=== PATIENT | male | born 1945 | race Caucasian/White ===

== ENCOUNTER 2019-11-23 11:05 | Inpatient (IN) | payer MEDICARE, OTHER, SELFPAY ==
[2019-11-23] VITALS (11 sets, daily range): BP systolic 97–129; BP diastolic 62–88; PULSE 68–100; RESP 14–20; TEMP 35.9–36.8; O2SAT 94–100; BMI 35.1
--- NOTE | 2019-11-23 11:38 | W.ED.SOB ---
HPI - SOB/Dyspnea General: Chief Complaint: Shortness of Breath/Dyspnea Stated Complaint: CHEST TIGHTNESS X 1 WEEK Time Seen by Provider: 11/23/19 11:21 History of Present Illness: HPI Narrative: 73 yo male comes in complaining 5 to 6 days of intermittent shortness of breath. He states 3 to 4 days ago he had a single episode of chest discomfort in the middle of the night. He is not had any fever sweats or chills no productive cough he is not had any previous coronary artery disease he denies nausea vomiting or diarrhea with this. He did have a little bit of streaking stool bloody stools but it was a single episode is not had any since he had related to his aspirin use. He denies any swelling in his legs he does not have any significant chest pain at this time. He not previously had episodes like this. Associated symptoms: Deny abdominal pain, chest pain, fever(s), nausea, orthopnea or vomiting Review of Systems Const: Denies: fever, chills, body aches, change in appetite, fatigue or malaise ENMT: Denies: throat pain, ear pain, nasal discharge or nasal congestion Card: Reports: swelling of feet/ankles (Slightly improved) and other (chest pressure); Denies: chest pain, edema, shortness of breath on exertion or shortness of breath when lying down Resp: Reports: shortness of breath and non-productive cough; Denies: productive cough GI: Denies: abdominal pain, nausea, vomiting, vomiting blood, coffee grounds in vomit, diarrhea, constipation, bloating, blood in stool or black tarry stool : Denies: flank pain, painful urination, urinary frequency or urinary urgency Skin/Breast: Denies: rash or itching PFS ED PFSH: Social History (Updated 11/23/19 @ 14:15 by Nicol Castaneda MD) Smoking and tobacco status: former smoker Alcohol intake: never Substance/Drug Use: never Physical Exam Const: COMMON NORMALS: no apparent distress GENERAL APPEARANCE: cooperative and comfortable ORIENTATION/CONSCIOUSNESS: Yes awake, Yes oriented to person, Yes oriented to place and Yes oriented to time HENMT: COMMON NORMALS: normocephalic, head/scalp atraumatic, hearing grossly normal bilaterally, external ears normal, EAC's normal, TM's normal bilaterally, nasal mucous membranes and turbinates normal, moist oral mucous membranes and oropharynx normal HEAD & SCALP: normocephalic and atraumatic NOSE: nasal mucous membranes and turbinates normal EXTERNAL EAR: Yes external ears normal EXTERNAL AUDITORY CANAL: EAC's normal TYMPANIC MEMBRANE: TM's normal bilaterally Eye: COMMON NORMALS: PERRL, EOMs intact bilaterally, conjunctivae normal and no scleral icterus CONJUNCTIVA: Yes conjunctivae normal PUPIL: Yes PERRL Neck/C-Spine: COMMON NORMALS: full ROM, no lymphadenopathy, supple and no JVD Lymph: LYMPHATIC: no lymphadenopathy noted and no lymphedema noted Resp: COMMON NORMALS: normal respiratory effort, no retractions, no use of accessory muscles and clear to auscultation bilaterally AUSCULTATION: clear to auscultation bilaterally Cardio: COMMON NORMALS: no JVD, regular rate, regular rhythm and no murmurs RATE: regular rate RHYTHM: regular rhythm GI: COMMON NORMALS: soft to palpation and no hepatosplenomegaly AUSCULTATION: Yes normoactive bowel sounds PALPATION: Yes soft, No tender, No guarding and Yes no hepatosplenomegaly Extremity: COMMON NORMALS: normal to inspection, normal capillary refill, no clubbing, cyanosis or edema, no calf tenderness and no pedal edema Neuro: SENSORIUM/ORIENTATION: Yes oriented to person, Yes oriented to place and Yes oriented to time Skin: COMMON NORMALS: no rashes or lesions noted GENERAL SKIN EXAM: no rashes or lesions noted Course Vital Signs: Vital signs: Vital Signs Temperature 97.8 F 11/23/19 15:22 Pulse Rate 79 11/23/19 16:15 Respiratory Rate 18 11/23/19 15:22 Blood Pressure 114/76 11/23/19 15:22 Pulse Oximetry 95 11/23/19 16:15 MDM - SOB/Dyspnea MDM Narrative: Medical decision making narrative: Patient is very concerning symptoms. He essentially has angina sounds as if it is unstable he got significantly better while at rest with the topical nitro ready to go ahead and admit him for full cardiac work-up discussed the findings with him and he is agreeable. Lab Data: Labs: Lab Results 11/23/19 11/23/19 11/23/19 Range/Units 12:00 12:00 12:00 WBC 9.5 (4.0-10.0) 10^3/ uL RBC 5.62 H (4.1-5.3) 10^6/u L Hgb 15.6 (11.7-16.6) g/dL Hct 49.7 (42.0-52.0) % MCV 88.4 (80-94) fL MCH 27.8 L (28.0-34.0) pg MCHC 31.4 (30.0-36.0) g/dL RDW 12.9 (12.1-15.1) % Plt Count 313 (130-400) 10^3/c mm MPV 10.6 H (7.4-10.4) fL Neut % (Auto) 65.1 % Lymph % (Auto) 23.9 % [place] % (Auto) 7.9 % Eos % (Auto) 1.1 % Baso % (Auto) 0.7 % Neut # (Auto) 6.2 (1.8-7.7) 10^3/u L Lymph # (Auto) 2.3 (0.8-4.8) 10^3/u L [place] # (Auto) 0.8 (0.2-0.9) 10^3/u L Eos # (Auto) 0.1 (0.0-0.8) 10^3/u L Baso # (Auto) 0.1 (0.0-0.1) 10^3/u L Nucleated RBC % (a uto) 0 % Nucleated RBCs # 0.0 /100WBC Sodium 140 (136-145) mmol/L Potassium 4.1 (3.5-5.1) mmol/L Chloride 104 (98-107) mmol/L Carbon Dioxide 23 (22-29) mmol/L Anion Gap 17.1 (5-19) BUN 17 (8-23) mg/dL Creatinine 1.0 (0.7-1.2) mg/dL Glucose 117 H (65-115) mg/dL Estimat Average Gl ucose Hemoglobin A1c (4.0-6.0) % Calculated Osmolal ity 287 (285-295) mOsm/k g Calcium 9.6 (8.5-10.5) mg/dL Total Bilirubin 0.5 (0.15-1.2) mg/dL AST 24 (0-40) U/L ALT 23 (0-41) U/L Alkaline Phosphata se 94 (40-130) IU/L Troponin T Baselin e 323 H* (0-15) ng/mL NT-Pro-B Natriuret Pep 468 H (0-125) pg/mL Total Protein 6.8 (6.6-8.7) g/dL Albumin 4.0 (3.5-5.2) g/dL Globulin 2.8 (1.3-4.6) g/dL Triglycerides (0-150) mg/dL Cholesterol (0-200) mg/dL LDL Cholesterol, C alc (50-129) mg/dL HDL Cholesterol (60-100) mg/dL LDL/HDL Ratio (0.00-3.22) RATI O Cholesterol/HDL Ra karan (1.0-5.00) mg/dL TSH (0.27-4.20) uIU/ mL 11/23/19 11/23/19 Range/Units 12:00 12:00 WBC (4.0-10.0) 10^3/ uL RBC (4.1-5.3) 10^6/u L Hgb (11.7-16.6) g/dL Hct (42.0-52.0) % MCV (80-94) fL MCH (28.0-34.0) pg MCHC (30.0-36.0) g/dL RDW (12.1-15.1) % Plt Count (130-400) 10^3/c mm MPV (7.4-10.4) fL Neut % (Auto) % Lymph % (Auto) % [place] % (Auto) % Eos % (Auto) % Baso % (Auto) % Neut # (Auto) (1.8-7.7) 10^3/u L Lymph # (Auto) (0.8-4.8) 10^3/u L [place] # (Auto) (0.2-0.9) 10^3/u L Eos # (Auto) (0.0-0.8) 10^3/u L Baso # (Auto) (0.0-0.1) 10^3/u L Nucleated RBC % (a uto) % Nucleated RBCs # /100WBC Sodium (136-145) mmol/L Potassium (3.5-5.1) mmol/L Chloride (98-107) mmol/L Carbon Dioxide (22-29) mmol/L Anion Gap (5-19) BUN (8-23) mg/dL Creatinine (0.7-1.2) mg/dL Glucose (65-115) mg/dL Estimat Average Gl ucose 111 Hemoglobin A1c 5.5 (4.0-6.0) % Calculated Osmolal ity (285-295) mOsm/k g Calcium (8.5-10.5) mg/dL Total Bilirubin (0.15-1.2) mg/dL AST (0-40) U/L ALT (0-41) U/L Alkaline Phosphata se (40-130) IU/L Troponin T Baselin e (0-15) ng/mL NT-Pro-B Natriuret Pep (0-125) pg/mL Total Protein (6.6-8.7) g/dL Albumin (3.5-5.2) g/dL Globulin (1.3-4.6) g/dL Triglycerides 134 (0-150) mg/dL Cholesterol 166 (0-200) mg/dL LDL Cholesterol, C alc 101 (50-129) mg/dL HDL Cholesterol 38 L (60-100) mg/dL LDL/HDL Ratio 2.66 (0.00-3.22) RATI O Cholesterol/HDL Ra karan 4.37 (1.0-5.00) mg/dL TSH 1.86 (0.27-4.20) uIU/ mL Discharge Plan Discharge Patient Disposition: Admitted As Inpatient Admit Provider: [place] Discharge Date/Time: 11/23/19 14:34 Coding Level of Care Code ED Milieu Technician for Chg Fwd Exam Comprehensive
--- NOTE | 2019-11-23 11:58 | XR_ITS ---
WS: [id number] CHEST XRAY TECHNIQUE: Portable chest. CLINICAL INFORMATION: dyspnea/cough COMPARISON: January 05, 2014 FINDINGS: Heart: Normal cardiac silhouette. Lungs: Moderate chronic emphysematous changes. No acute pulmonary infiltrates. No focal pneumonia. No pleural fluid. Bones: Left rotator cuff anchors. XR/XR chest 1V portable [id number] IMPRESSION: No acute pulmonary infiltrates. No acute chest findings.
[2019-11-23 12:20] LABS: Basophils # 0.1 10^3/uL (0.0-0.1); Basophils % 0.7 %; Eosinophils # 0.1 10^3/uL (0.0-0.8); Eosinophils % 1.1 %; Hematocrit 49.7 % (42.0-52.0); Hemoglobin 15.6 g/dL (11.7-16.6); Lymphocytes # 2.3 10^3/uL (0.8-4.8); Lymphocytes % 23.9 %; Mean Corpuscular HGB Conc 31.4 g/dL (30.0-36.0); Mean Corpuscular Hemoglobin 27.8 pg (28.0-34.0); Mean Corpuscular Volume 88.4 fL (80-94); Mean Platelet Volume 10.6 fL (7.4-10.4); Monocytes # 0.8 10^3/uL (0.2-0.9); Monocytes % 7.9 %; Neutrophils # 6.2 10^3/uL (1.8-7.7); Neutrophils % 65.1 %; Nucleated Red Blood Cells % 0 %; Platelet Count 313 10^3/cmm (130-400); Red Blood Count 5.62 10^6/uL (4.1-5.3); Red Cell Distribution Width 12.9 % (12.1-15.1); White Blood Count 9.5 10^3/uL (4.0-10.0)
[2019-11-23 12:39] LABS: Troponin(5th) Baseline 323 ng/mL (0-15)
[2019-11-23 12:42] LABS: Alanine Aminotransferase 23 U/L (0-41); Alkaline Phosphatase 94 IU/L (40-130); Anion Gap 17.1 (5-19); Aspartate Amino Transferase 24 U/L (0-40); Blood Urea Nitrogen 17 mg/dL (8-23); Calcium 9.6 mg/dL (8.5-10.5); Carbon Dioxide 23 mmol/L (22-29); Chloride 104 mmol/L (98-107); Globulin 2.8 g/dL (1.3-4.6); Glucose 117 mg/dL (65-115); NT Pro B Type Natriuretic Pept 468 pg/mL (0-125); Osmolality Calculated 287 mOsm/kg (285-295); Potassium 4.1 mmol/L (3.5-5.1); Sodium 140 mmol/L (136-145); Total Bilirubin 0.5 mg/dL (0.15-1.2); Total Protein 6.8 g/dL (6.6-8.7)
[2019-11-23] MEDS: nitroglycerin 1 gm/inch oint Pkt 0.5 INCH TOPICAL (12:55)
[2019-11-23] MEDS: enoxaparin 120 mg/0.8 mL Syringe 110 MG SUBCUT ×2 (13:10→23:42)
--- NOTE | 2019-11-23 13:15 | ECG_ITS ---
Measurements Intervals [place] Rate: 68 P: 27 [place]: 151 QRS: -39 QRSD: 102 T: 62 QT: 404 QTc: 431 SINUS RHYTHM INDETERMINATE AXIS LOW QRS VOLTAGE IN PRECORDIAL LEADS [QRS DEFLECTION < 1.0 mV IN CHEST LEADS] INFERIOR MYOCARDIAL INFARCTION , PROBABLY OLD [40+ ms Q WAVE AND/OR ST/T AB ABNORMALITY IN II/aVF] No previous ECG available for comparison Electronically Signed On 11-24-2019 6:46:48 CDT by Robbie Rodriguez M.D. [email or web address]
--- NOTE | 2019-11-23 14:04 | PC.NURSE ---
Attempted to call to give report. Unable to give report at this time, because nurse is not on Med-Surg yet. Med-Surg Nurse will call ER when they are able to take report. Charge Nurse notified.
--- NOTE | 2019-11-23 14:08 | PM.HP ---
Providers/Chief Complaint Admitting Physician: Nicol Castaneda MD Primary Care Provider: Bryan Saez DO Chief Complaint: NSTEMI History of Present Illness Abelino Mcqueen is a 73 year old male with PMH HTN, h/o smoking who presents today with chief complaint of chest pain that started 3 days ago. Patient states he was in his usual state of health until about a week ago when he started to notice intermittent shortness of breath on exertion. Initially he experienced this only when he was trying to cycle around his yard at home. 3 days ago he woke up at night with substernal chest pain that was radiating in between both shoulders. He sat up in bed for about 1 to 2 hours and the pain went away. He also felt short of breath at this time as a sensation of not being able to get enough air in . He has never had similar chest pain in the past. He continues to have intermittent chest pain over the next 2 days, however this was less in intensity than his nighttime pain. He [email or web address], he had some substernal heaviness and he started to gillespie and puff which is unusual for him. Sitting down and resting for a few minutes make the sensation go away. He visited his primary care doctor today for the above symptoms and was sent to the ER for further evaluation. He denies any current chest pain at this present time. He has also noticed a dry cough over this past 1 week. He has no history of fever. No history of expectoration. No history of increasing leg swelling. Of note he says he has chronic lower extremity edema for the past 4 years for which his primary care doctor had him on hydrochlorothiazide. He has a history of hypertension, which he states is well controlled. No past history of diabetes, early history of CAD. He does have a history of chronic smoking but quit few years ago. No complaints of fever. No history of recent travel. No sick contacts. Upon presentation to the ER his blood pressure at this present time is 118/64. EKG showed Q waves. Baseline troponin returned at greater than 3 23. BNP is at 468. He has no other known past cardiac history. No past echocardiogram or stress test on file. Review of Systems General: Reports: 10 or more systems reviewed and unremarkable except in HPI and below Const: Denies: fever, chills or body aches Eyes: Denies: change in vision, blurry vision or photophobia ENMT: Denies: throat pain, enlarged tonsils, painful swallowing, hoarseness or nasal congestion Card: Reports: chest pain, swelling of feet/ankles and shortness of breath on exertion; Denies: palpitations, irregular heart rhythm, edema, lightheadedness, pre-syncope or shortness of breath when lying down Resp: Reports: shortness of breath and non-productive cough; Denies: productive cough, wheezing, stridor, pain on inspiration, change in phlegm color, coughing up blood or chest congestion GI: Denies: abdominal pain, nausea, vomiting, vomiting blood, coffee grounds in vomit, difficulty swallowing, heartburn/indigestion, diarrhea, constipation, cramping, change in stool character, blood in stool or black tarry stool : Denies: flank pain, painful urination, urinary frequency, urinary urgency, urinary hesitancy or blood in urine Musc: Denies: neck pain, back pain, extremity pain, joint swelling, joint warmth or deformity Neuro: Denies: headache, numbness in extremities, weakness in extremities, changes in sensation, difficulty walking, frequent falls, dizziness, vertigo, behavioral changes, slurred speech or seizure-like activity Psych: Denies: anxiety, depression, suicidal ideation or homicidal ideation Endo: Denies: excessive urination, excessive thirst, tired all the time, cold intolerance or hot flashes [place]/Lymph: Denies: easy bruising or easy bleeding Medications/Allergies Home Medications Medication Instructions Recorded Confirmed Last Taken Type Vitamin D3 1 tab PO DAILY 11/23/19 11/23/19 Unknown History aspirin-caffeine [Hina Back and 2 tab PO BEDTIME PRN 11/23/19 11/23/19 11/21/19 History Body] hydrochlorothiazide 25 mg PO DAILY 11/23/19 11/23/19 11/23/19 History magnesium oxide 400 mg PO DAILY 11/23/19 11/23/19 Unknown History meloxicam 15 mg PO DAILY 11/23/19 11/23/19 11/23/19 History oxycodone-acetaminophen 1 tab PO BID PRN 11/23/19 11/23/19 Unknown History potassium gluconate 595 mg PO DAILY 11/23/19 11/23/19 Unknown History Allergies Allergy/AdvReac Type Severity Reaction Status Date / Time No Known Allergies Allergy Verified 11/23/19 10:14 PFSH Acute PFSH: Social History (Updated 11/23/19 @ 14:15 by Nicol Castaneda MD) Smoking and tobacco status: former smoker Alcohol intake: never Substance/Drug Use: never Vitals/I&O/Wt Last Vital Signs Temp 97.8 F 11/23/19 11:19 Pulse 71 11/23/19 13:59 Resp 16 11/23/19 13:59 BP 116/78 11/23/19 11:49 Pulse Ox 100 11/23/19 13:57 Weight last 48 hrs Weight 114.305 kg Physical Exam Narrative: EXAM NARRATIVE: GEN: Awake, alert and oriented, no acute distress CVS: S1S2 N, no murmurs, rubs or gallops RS: CTA B/L Abd: Soft, nt/nd , bs+ 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 Data : 11/23/19 12:00 11/23/19 12:00 Other Labs: troponin-323 baseline CXR: My impression: clear lungs A&P Additional A&P Information Admit to CSU level care # Chest pain with EKG changes and elevated troponin raising concern for ACS Symptoms started 3 days ago Thus far, baseline troponin elevated at 323, awaiting 2 hr and 6 hr troponin levels for trend serial EKGs pending No current c/o chest pain but endorses intermittent SOB, which may be angina equivalent Check lipid panel, hba1c and TSH in addition to other labs already drawn Start ASA 325 x 1 followed by 81mg po qd Start Atorvastatin 40mg po qd Further decision regarding testing to be based on troponin trend, patient symptoms and EKG changes Attestations Medical Necessity Statement*: anticipate >2midnight admission Coding Level of Care Code Acute It Systems Administrator for Chg Malvin
[2019-11-23 14:45] LABS: Chol HDL Ratio 4.37 mg/dL (1.0-5.00); Cholesterol 166 mg/dL (0-200); HDL Cholesterol 38 mg/dL (60-100); LDL Cholesterol Calculated 101 mg/dL (50-129); LDL HDL Ratio 2.66 RATIO (0.00-3.22); Thyroid Stimulating Hormone 1.86 uIU/mL (0.27-4.20); Triglycerides 134 mg/dL (0-150)
[2019-11-23] MEDS: aspirin 325 mg Tablet PO (15:08)
[2019-11-23] MEDS: sodium chloride 0.9% 1,000 ML 100 ML IV (15:08)
[2019-11-23] MEDS: atorvastatin 40 mg Tablet PO (15:08)
[2019-11-23 15:25] LABS: Estmated Average Glucose 111; Hemoglobin A1C 5.5 % (4.0-6.0)
[2019-11-23 16:50] LABS: Troponin 5 2HR 349.6 ng/mL (0-15); Troponin 5 2HR Delta 26.6 ABS# (0-10)
--- NOTE | 2019-11-23 17:15 | ECG_ITS ---
Measurements Intervals [place] Rate: 79 P: 48 [place]: 130 QRS: -51 QRSD: 104 T: 60 QT: 417 QTc: 479 SINUS RHYTHM INDETERMINATE AXIS LOW QRS VOLTAGE IN PRECORDIAL LEADS [QRS DEFLECTION < 1.0 mV IN CHEST LEADS] INCOMPLETE RIGHT BUNDLE BRANCH BLOCK [90+ ms QRS DURATION, TERMINAL R IN V1/V2, 40+ ms S IN I/aVL/V4/V5/V6] LEFT ANTERIOR FASCICULAR BLOCK [QRS AXIS <= -45, QR IN I, RS IN II] POSSIBLE ANTERIOR MYOCARDIAL INFARCTION [30 ms Q WAVE IN V3/V4, OR R < 0.2 mV IN V4], PROBABLY OLD INFERIOR MYOCARDIAL INFARCTION [40+ ms Q WAVE AND/OR ST/T ABNORMALITY IN II/aVF], PROBABLY OLD No previous ECG available for comparison Electronically Signed On 11-24-2019 6:47:09 CDT by Robbie Rodriguez M.D. [id number]
[2019-11-23] MEDS: nitroglycerin 1 gm/inch oint Pkt 1 INCH TOPICAL ×2 (17:30→23:43)
[2019-11-23 19:45] LABS: Troponin 5 6HR 344.9 ng/mL (0-15); Troponin 5 6HR Delta 21.9 ng/L (0-12)
[2019-11-23] MEDS: ALPRAZolam 0.25 mg Tablet PO (20:05)
[2019-11-24] VITALS (8 sets, daily range): BP systolic 97–148; BP diastolic 64–94; PULSE 73–85; RESP 16–20; TEMP 36.3–36.9; O2SAT 95–99
[2019-11-24 05:33] LABS: Basophils # 0.1 10^3/uL (0.0-0.1); Basophils % 0.8 %; Eosinophils # 0.2 10^3/uL (0.0-0.8); Eosinophils % 2.1 %; Hemoglobin 13.8 g/dL (11.7-16.6); Lymphocytes # 3.3 10^3/uL (0.8-4.8); Lymphocytes % 32.4 %; Mean Corpuscular HGB Conc 31.4 g/dL (30.0-36.0); Mean Corpuscular Volume 89.4 fL (80-94); Mean Platelet Volume 11.1 fL (7.4-10.4); Monocytes # 0.9 10^3/uL (0.2-0.9); Monocytes % 8.4 %; Neutrophils # 5.5 10^3/uL (1.8-7.7); Nucleated Red Blood Cells % 0 %; Platelet Count 275 10^3/cmm (130-400); Red Blood Count 4.92 10^6/uL (4.1-5.3); Red Cell Distribution Width 13.1 % (12.1-15.1); White Blood Count 10.1 10^3/uL (4.0-10.0)
[2019-11-24] MEDS: nitroglycerin 1 gm/inch oint Pkt 1 INCH TOPICAL ×3 (05:50→19:26)
[2019-11-24 05:57] LABS: Alanine Aminotransferase 20 U/L (0-41); Albumin Level 3.5 g/dL (3.5-5.2); Alkaline Phosphatase 76 IU/L (40-130); Anion Gap 15.8 (5-19); Aspartate Amino Transferase 21 U/L (0-40); Blood Urea Nitrogen 17 mg/dL (8-23); Calcium 9.2 mg/dL (8.5-10.5); Carbon Dioxide 24 mmol/L (22-29); Chloride 105 mmol/L (98-107); Globulin 2.7 g/dL (1.3-4.6); Glucose 111 mg/dL (65-115); Osmolality Calculated 289 mOsm/kg (285-295); Potassium 3.8 mmol/L (3.5-5.1); Sodium 141 mmol/L (136-145); Total Bilirubin 0.4 mg/dL (0.15-1.2); Total Protein 6.2 g/dL (6.6-8.7)
[2019-11-24] MEDS: aspirin 81 mg EC Tablet PO (08:44)
[2019-11-24] MEDS: acetaminophen 325 mg Tablet 650 MG PO (08:58)
--- NOTE | 2019-11-24 08:59 | ECG_ITS ---
NAME OF STUDY: LEXISCAN SESTAMIBI STRESS TEST INDICATION: Angina, PROCEDURE: At the baseline, the EKG revealed normal sinus rhythm with a poor R wave progression. Possible old anterior wall and inferior wall myocardial infarction. Low voltage complexes in the precordial leads. The baseline blood pressure was 104/62 mm Hg with a heart rate of 67 beats/min. Lexiscan was infused over a period of 20 seconds. A total of 0.4 milligrams of Lexiscan was infused. The stress phase was continued for a total of 5 minutes. Heart rate at the end of the stress phase was 79 with a blood pressure 109/82. The EKG at the peak infusion revealed no significant changes. Sestamibi was injected 20 seconds after the Lexiscan infusion. Blood pressure at the end of the recovery phase was 101/65 with a heart rate of 81 per minute. CONCLUSION: 1. No significant EKG changes with the LexiScan infusion 2. No LexiScan induced chest pain or cardiac arrhythmia 3. Normal blood pressure and heart rate response 4. Sestamibi/sestamibi perfusion scan pending; see separate report. Electronically Signed On 11-25-2019 13:19:16 CDT by Rafael Pacheco M.D. [id number]
--- NOTE | 2019-11-24 11:49 | PC.CHAP ---
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 [] Patient/Family/Request visit [] Outpatient visit [] Follow-up visit [] Physician referral [] Code/Alert [x] Routine visit [] Staff referral [] Actively dying [] Patient sleeping [] Family support [] [] Out of room [] Palliative care [] [] Receiving care in room [] Pre-surgical visit [] Trauma [] Long length of stay [] ICU visit [] Other: Relational/Emotional Strength [x] Patient feels connected with others/family/visitors/staff [] Distress [] Loneliness/isolation [] Abandonment Spirituality of Patient [x] Person of Brianna [x] Attends Latter Day of their [place] [x] Believes in Prayer [x] Reads Bible or Jew materials [] There are Spiritual issues to be addressed Service Station Console Operator Interventions [x] Prayer [x] Active listening [x] Non-anxious presence [x] Spiritual/emotional support [] Crisis/trauma care [] Spiritual counseling [] Bereavement support [] Provided bereavement packet [] Provided Bible/devotional materials [] Provided toy/stuffed animal, coloring book to patient or family member [] Provided Communion [] Anointing/[place] [] Salvation [] Completed spiritual assessment [] Other: Impact on Illness or Injury [] Angry [] Fearful [] Anxious [] Often cries [] Exhaustion [] Unable to work [] Unable to attend orthodoxy [] Unable to walk/stand [] Unable to read [] Unable to drive [] Unable to eat/drink [] Unable to sleep [] Unable to be with family [] Patient intubated [x] Other: Summary Patient is an active and current poultry process worker, from which a great Theological discussion was patricia. Time spent with patient 1-hour
--- NOTE | 2019-11-24 12:00 | P.PN_ITS ---
Subjective Subjective: Interval history: Feels well overall, no new complaints. No c/o dyspnea, however reports doesn't always feel right in the chest and the sensation appears to be improving with nitropaste. Troponins with 2 and 6 hr delta of 26 and 21. 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
[2019-11-24] MEDS: enoxaparin 120 mg/0.8 mL Syringe 110 MG SUBCUT ×2 (12:11→20:12)
[2019-11-24] MEDS: hydroCHLOROthiazide 25 mg Tablet PO (13:22)
[2019-11-24] MEDS: morphine 4 mg/mL SDV 1 mL 2 MG IVP (20:12)
[2019-11-24] MEDS: atorvastatin 40 mg Tablet PO (20:14)
[2019-11-24] MEDS: ALPRAZolam 0.25 mg Tablet PO (20:14)
[2019-11-25] VITALS (7 sets, daily range): BP systolic 97–142; BP diastolic 53–85; PULSE 62–79; RESP 17–18; TEMP 36.6–36.7; O2SAT 94–99
[2019-11-25 05:28] LABS: Basophils # 0.1 10^3/uL (0.0-0.1); Basophils % 0.8 %; Eosinophils # 0.2 10^3/uL (0.0-0.8); Eosinophils % 2.3 %; Hematocrit 45.7 % (42.0-52.0); Hemoglobin 14.5 g/dL (11.7-16.6); Lymphocytes # 2.5 10^3/uL (0.8-4.8); Lymphocytes % 24.8 %; Mean Corpuscular HGB Conc 31.7 g/dL (30.0-36.0); Mean Corpuscular Hemoglobin 27.7 pg (28.0-34.0); Mean Corpuscular Volume 87.4 fL (80-94); Mean Platelet Volume 10.5 fL (7.4-10.4); Monocytes # 0.9 10^3/uL (0.2-0.9); Monocytes % 8.6 %; Neutrophils # 6.2 10^3/uL (1.8-7.7); Neutrophils % 62.3 %; Nucleated Red Blood Cells % 0 %; Platelet Count 297 10^3/cmm (130-400); Red Blood Count 5.23 10^6/uL (4.1-5.3); Red Cell Distribution Width 12.8 % (12.1-15.1)
--- NOTE | 2019-11-25 07:20 | PC.NURSE ---
Patient taken to [facility] [place] test
[2019-11-25] MEDS: regadenoson 0.4 Mg/5 ml Syringe IVP (07:45)
[2019-11-25] MEDS: hydroCHLOROthiazide 25 mg Tablet PO (09:44)
[2019-11-25] MEDS: pantoprazole DR 40 mg Tablet PO (09:44)
[2019-11-25] MEDS: aspirin 81 mg EC Tablet PO (09:44)
--- NOTE | 2019-11-25 12:19 | NMCV_ITS ---
NM sohail perf SPECT r/s* [id number] Abelino Mcqueen Age: 73 Gender: M : 1945 Exam Date: 11/25/2019 07:08 Ordering Phys: Nicol Castaneda MD Technologist: CAROL Rivero Exam Location: [facility] Indications: NSTEMI STRESS TEST Please see separate stress test report in [facility] for full findings IMAGE PROTOCOL Rest/Stress 1 Lexiscan Day Radiopharmaceutical Dose (mCi) Administration Site Administered by Rest: Tc-99m 10.9 IV CAROL Hassan Sestamibi Stress:Tc-99m 32.9 IV CAROL Hassan Sestamibi Rest: 25-Nov-2019 60 Discovery 630 Stress: 25-Nov-2019 30 Discovery 630 0.4mg Lexiscan. Supine position only as patient was unable to lay prone. SPECT RESULTS Technical Quality: Good Raw Data Analysis: Normal Image Corrections: No attenuation or motion correction applied Summed Stress Score: 18 Summed Rest Score: 23 Summed Difference Score: 1 PERFUSION FINDINGS Moderate to large area of severely decreases uptake in the basal and mid inferolateral, basal and mid anterolateral, mid and apical anterior, apical lateral and LV apex. There was a subtle area reversibility in the apical anterior region FUNCTIONAL RESULTS (calculated via Gated SPECT) Stress Image LV EF (%): 53 Stress EDV (mL):139 TID: 1.12 Stress ESV (mL):65 FUNCTIONAL FINDINGS: Segmental wall motion analysis revealing mild diffuse hypokinesia of the LV apex IMPRESSIONS 1. Myocardial perfusion imaging revealing areas of persistent decreased tracer uptake in the distribution of the left anterior descending and left circumflex arteries with a very small area of reversible defect in the apical region, suggestive of myocardial scarring with a subtle area of ischemia. #2. Normal LV ejection fraction 53%. #3. LV wall motion analysis revealing mild hypokinesia of the LV apex #4. Mildly dilated LV cavity with an end-systolic volume of 65 mL No similar previous studies are available for comparison Dr Rafael Pacheco MD FAC (Electronically Signed) Final Date: 25 November 2019 14:19 S
[2019-11-25] MEDS: enoxaparin 120 mg/0.8 mL Syringe 110 MG SUBCUT (13:23)
--- NOTE | 2019-11-25 14:28 | USCV_ITS ---
Charisse, Jack Age: 73 Gender: M : 1945 Exam Date: 11/25/2019 15:22 Ordering Phys: Nicol Castaneda MD Technologist: [place] Exam Location: [facility] [place] Indication: LV FUNCTION PER EFF BP: 134 / 74 HR: 68 Rhythm: Sinus Technical Quality: Fair MEASUREMENTS (Male / Female) Normal Values 2D ECHO LV Diastolic Diameter PLAX 3.7 cm 4.2 - 5.9 / 3.9 - 5.3 cm LV Systolic Diameter PLAX 3.7 cm IVS Diastolic Thickness 1.0 cm 0.6 - 1.0 / 0.6 - 0.9 cm IVS Systolic Thickness 1.3 cm LVPW Diastolic Thickness 1.2 cm 0.6 - 1.0 / 0.6 - 0.9 cm LVPW Systolic Thickness 1.4 cm LVOT Diameter 2.0 cm LV Ejection Fraction 2D Teich 2.6 % LV Ejection Fraction MOD 2C 71.9 % LV Ejection Fraction 2C AL 72.0 % LA Diameter 4.9 cm LA Width 3.4 cm LA Height 4.9 cm RA Width 4.3 cm RA Height 4.8 cm M-MODE LV Diastolic Diameter MM 4.9 cm 4.2 - 5.9 / 3.9 - 5.3 cm LV Systolic Diameter MM 2.8 cm LV Ejection Fraction MM Teich 72.6 % IVS Diastolic Thickness MM 1.4 cm 0.6 - 1.0 / 0.6 - 0.9 cm IVS Systolic Thickness MM 1.7 cm LVPW Diastolic Thickness MM 1.7 cm 0.6 - 1.0 / 0.6 - 0.9 cm LVPW Systolic Thickness MM 2.1 cm RV Diastolic Diameter MM 2.0 cm Aortic Annulus Diameter 3.8 cm LA Ao Ratio MM 1.3 MV E Point Septal Separation 1.7 cm DOPPLER AV Peak Velocity 120.0 cm/s LVOT Peak Velocity 100.0 cm/s AV Area Cont Eq vti 3.4 cm squared AV Area Cont Eq pk 2.7 cm squared MV Area PHT 5.0 cm squared Mitral E to A Ratio 1.6 MV E' Velocity 10.0 cm/s Mitral E to MV E' Ratio 8.3 Mitral E to LV E' Lateral Ratio 7.1 Mitral E to LV E' Septal Ratio 9.8 TR Peak Velocity 149.0 cm/s TR Peak Gradient 8.8 mmHg TV Peak E Velocity 89.0 cm/s Right Atrial Pressure 3.0 mmHg Pulmonary Artery Systolic Pressu 11.9 mmHg FINDINGS Left Ventricle Normal left ventricular size and systolic function, EF 68 %. No regional wall motion abnormalities. Mild left ventricular hypertrophy. Right Ventricle Normal right ventricular size and systolic function. Right Atrium The right atrium is normal in size. Left Atrium The left atrium is normal in size. Mitral Valve Trace mitral valve regurgitation. Aortic Valve Thickened aortic valve. Tricuspid Valve Structurally normal tricuspid valve without significant stenosis or regurgitation. Pulmonary artery systolic pressure is normal. Pulmonic Valve No gross abnormalities noted. Pericardium No pericardial effusion. Aorta Normal ascending aorta dimension. CONCLUSIONS Normal left ventricular size and systolic function, EF 68 %. No regional wall motion abnormalities. Mild left ventricular hypertrophy. Thickened aortic valve. Trace mitral valve regurgitation. There is no pericardial effusion. There are no intracardiac masses. There are no prior echocardiogram studies to compare. Dr Rafael Pacheco MD FACC (Electronically Signed) Final Date: 25 November 2019 17:37 S
--- NOTE | 2019-11-25 18:42 | PM.CONSULT ---
Providers/Reason For Consult Consulting Physican/Specialty*: TERRY Pacheco MD/cardiology Reason for Consult*: Patient with elevated troponin T/abnormal myocardial perfusion imaging Attending Physician: Nicol Castaneda MD Primary Care Provider: Bryan Saez DO History of Present Illness History of Present Illness Abelino Mcqueen is a 73 year old male is admitted to the hospital through the emergency room, where he presented with complaints of chest tightness/pain/shortness of breath. He was found to have an elevated troponin T. Today he had a myocardial perfusion imaging which revealed a areas of reversible defect, suggestive of ischemia. Cardiology consult is requested for further cardiac evaluation recommendations. This patient has no previous history for coronary artery disease, myocardial infarction or congestive heart failure. He has a history of peripheral edema for which he been taking a diuretic for long time. He also has a history of morbid obesity. Within the last 1 year, he may have lost around 50 pounds by keto diet. He has no history for diabetes, high blood pressure or dyslipidemia. He used to smoke a pack a day or so for 25 years. He quit this more than 20 years ago. No alcohol abuse or any other substance abuse. He has no significant family history. His father had a heart attack in his 80s with multiple other medical problems. Apparently the patient has been doing okay up until 3 days ago when he started having chest tightness and shortness of breath while shopping in [place]. On the same night, he had an episode of severe chest tightness/heaviness associated with shortness of breath, which woke him up from sleep. He had to sit up at the side of the bed for several minutes to get relief of the symptoms. Since then, he has been having episodes of chest tightness/heaviness and shortness of breath with activities. The pain usually radiates across the chest and to the shoulders. At times the pain radiates to the back between the shoulder blades. He had no associated nausea or vomiting. No sweating, dizziness or syncopal episode. Currently he is mainly complaining of exertional chest tightness and shortness of breath. He also gets fatigued with activities. No fever, chills or cough. No orthopnea or PND. His functional status has significantly decreased since the episode in [facility] few days ago. Review of Systems Narrative: CONSTITUTIONAL: No fever or chills. EYES: No blurring of vision or other visual disturbances lately. ENT: No hoarseness of voice, auditory disturbances or sore throat. CARDIOVASCULAR: As mentioned above. RESPIRATORY: No significant cough. GASTROINTESTINAL: Remote history of rectal bleed GENITOURINARY: No dysuria or hematuria. INTEGUMENTARY: No skin rashes or history of skin cancer. NEURO: No transient ischemic attacks or amaurosis. PSYCHIATRIC: No history of psychosis or major depression. HEMATOLOGIC: No bleeding disorders or significant anemia. ENDOCRINE: No history of polyuria or polydipsia. MUSCULOSKELETAL: History of DJD ALLERGY/IMMUNOLOGY: As mentioned above. Meds/Allergies Home Medications and Allergies Home Medications Medication Instructions Recorded Confirmed Last Taken Type Vitamin D3 1 tab PO DAILY 11/23/19 11/23/19 Unknown History aspirin-caffeine [Hina Back and 2 tab PO BEDTIME PRN 11/23/19 11/23/19 11/21/19 History Body] hydrochlorothiazide 25 mg PO DAILY 11/23/19 11/23/19 11/23/19 History magnesium oxide 400 mg PO DAILY 11/23/19 11/23/19 Unknown History meloxicam 15 mg PO DAILY 11/23/19 11/23/19 11/23/19 History oxycodone-acetaminophen 1 tab PO BID PRN 11/23/19 11/23/19 Unknown History potassium gluconate 595 mg PO DAILY 11/23/19 11/23/19 Unknown History Allergies Allergy/AdvReac Type Severity Reaction Status Date / Time No Known Allergies Allergy Verified 11/23/19 10:14 Current Medications Current Medications Generic Name Dose Route Start Last Admin Trade Name Freq PRN Reason Stop Dose Admin Acetaminophen 650 mg 11/23/19 13:59 11/24/19 08:58 Tylenol PO 650 mg Q6H PRN Administration Mild/Mod Pain Or Temp >/= 101 Alprazolam 0.25 mg 11/23/19 18:28 11/24/19 20:14 Xanax PO 0.25 mg BID PRN Administration ANXIETY Aspirin 81 mg 11/24/19 09:00 11/25/19 09:44 Aspirin Ec PO 81 mg DAILY FLY Administration Atorvastatin Calcium 40 mg 11/23/19 14:10 11/24/19 20:14 Lipitor PO 40 mg BEDTIME FLY Administration Morphine Sulfate 2 mg 11/23/19 13:59 11/24/19 20:12 Morphine IVP 2 mg Q4H PRN Administration SEVERE PAIN Pantoprazole Sodium 40 mg 11/25/19 09:00 11/25/19 09:44 Protonix PO 40 mg DAILY FLY Administration PFSH Acute PFSH: Medical History (Updated 11/25/19 @ 19:12 by Rafael Pacheco MD) Abnormal myocardial perfusion study Acute coronary syndrome Cholecystitis Dyslipidemia Morbid obesity due to excess calories Osteoarthritis Rectal bleed Social History Smoking and tobacco status: former smoker Alcohol intake: never Substance/Drug Use: never Vitals/I&O/Wt Last Vital Signs Temp 98.1 F 11/25/19 15:49 Pulse 65 11/25/19 15:49 Resp 17 11/25/19 15:49 BP 120/85 11/25/19 15:49 Pulse Ox 99 11/25/19 15:49 11/25/19 11/25/19 11/25/19 06:59 14:59 22:59 Intake Total 240 / 240 240 / 480 Output Total 600 / 1075 Balance -600 / 5 240 / 240 240 / 480 Weight last 48 hrs Weight 252 lb 6.4 oz Weight 256 lb Weight 253 lb 5 oz Physical Exam Narrative: EXAM NARRATIVE: GENERAL: The patient is alert and oriented times three. Moderately obese. Not in any acute distress. HEENT: No significant pallor, icterus or lymphadenopathy. The pupils are reactant to light. Oral cavity: There are no mucous membrane lesions. Funduscopic examination: The fundus is not visualized NECK: Trachea appears to be central. No masses noted. No JVD or thyromegaly appreciated. No carotid bruit. RESPIRATORY: Chest is symmetrical. No intercostals muscle retraction or any accessory muscle activation. There is no chest wall tenderness. Breath sounds are heard bilaterally. No rales or rhonchi heard. No evidence of any consolidation. BREASTS: Deferred. HEART: T the PMI could not be palpated. No other palpable precordial events. First and second heart sounds are normal. No S3. No significant murmurs. ABDOMEN: No vessel pulsations or distention. No tenderness. No organomegaly appreciated. No abdominal bruit. Bowel sounds are normally heard. : Deferred. RECTAL: Deferred. LYMPHATIC: No lymphadenopathy noted in the neck or groin. EXTREMITIES: Trace edema both lower extremities. No cyanosis. Peripheral pulses are palpable and fairly good volume and amplitude. MUSCULOSKELETAL: No acute joint deformities or swelling SKIN: There are no significant scars or skin rash noted. NEUROPSYCHIATRIC: The patient is alert and oriented x3. Appears to be in a good mood. The higher functions are grossly within normal limits. No tremors or rigidity noted. Data Imaging^: Other Imaging: My impression: The myocardial perfusion imaging revealed #1. Areas of persistent decreased tracer uptake in the distribution of the left anterior descending and left circumflex arteries with a very small area of reversible defect in the apical region, suggestive of myocardial scarring with a subtle area of ischemia. #2. Normal LV ejection fraction 53%. #3. LV wall motion analysis revealing mild hypokinesia of the LV apex #4. Mildly dilated LV cavity with an end-systolic volume of 65 mL Echo: My impression: The echocardiogram revealed Normal left ventricular size and systolic function, EF 68 %. No regional wall motion abnormalities. Mild left ventricular hypertrophy. Thickened aortic valve. Trace mitral valve regurgitation. There is no pericardial effusion. There are no intracardiac masses. There are no prior echocardiogram studies to compare. CXR: My impression: Normal cardiac silhouette. No lung infiltrate. No acute pathology noted. EKG^: EKG 1: My Interpretation: The EKG revealed normal sinus rhythm with incomplete right bundle branch block pattern. Possible old inferior myocardial infarction. Some nonspecific ST changes. A&P Assessment and plan (1) Acute coronary syndrome: Patient's clinical features are consistent with an acute coronary syndrome complicated with non-ST elevation myocardial infarction. Currently he seems to be stable hemodynamically. He continues to have exertional angina and shortness of breath. He came with an elevated troponin T and significant delta. Currently the troponin T is trending downwards. Echocardiogram was unremarkable. I discussed with the patient in detail the implications of the test findings. Even though the area of ischemia small, in view of his ongoing symptoms, in order to further evaluate his coronary status, a cardiac catheterization would be appropriate. The risk of bleeding, hematoma, vascular injury, myocardial infarction, CVA, renal failure and other concomitant complications were explained in detail. Patient understood this well and consented to proceed. We may go ahead and schedule this procedure sometime in the morning. In the meanwhile, he may be kept on nitrates, beta-eliot, aspirin, Plavix and subcu Lovenox. Status: Acute (2) Abnormal myocardial perfusion study: The myocardial perfusion imaging findings are suggestive of myocardial scarring with ischemia in the distribution of the left and descending artery. However the echocardiogram did not reveal any significant wall motion normalities. A noncardiac etiology cannot be excluded. I may do a d-dimer to look for any evidence of venous thromboembolism Status: Acute (3) Dyslipidemia: May continue on the Lipitor Status: Acute (4) Morbid obesity due to excess calories: May continue on the dietary modifications Status: Acute Additional A&P Information After reviewing the above and also based on the patient's clinical progress, further recommendations will be made. Thank you for the opportunity to evaluate this patient make these recommendations I may go and start him on a low-dose of beta-eliot. Continue the Lovenox twice a day. Also will check on the d-dimer Coding Level of Care Code Acute Building Pressure Washer for Nathaniel Coombs Diagnoses Acute coronary syndrome I24.9 Abnormal myocardial perfusion study R94.39 Dyslipidemia E78.5 Morbid obesity due to excess calories E66.01
[2019-11-25] MEDS: atorvastatin 40 mg Tablet PO (19:53)
[2019-11-25] MEDS: ALPRAZolam 0.25 mg Tablet PO (19:53)
[2019-11-25] MEDS: clopidogrel 300 mg Tablet PO (19:54)
--- NOTE | 2019-11-25 20:26 | PC.NURSE ---
At 1945 Patient requested all his medications that could be given at this time be given. Patient wanted to go to sleep and stated he hadn't sleep in 4 nights. I administered what medications i could. Patient asked If I had to come in his room any more tonight. I stated yes that he had Q4 hour assessments and vitals and that we would try to group everything together so he could get as much as rest as possible. Patient verbalized understanding.
--- NOTE | 2019-11-25 20:44 | P.PN_ITS ---
Subjective Subjective: Interval history: Patient underwent stress test this morning, with results showing areas of reversible defect, suggestive of ischemia. Cardiology consult was called with these results and patient planned for an angiogram tomorrow. He was seen and examined earlier this afternoon at which time he was extremely upset about having to stay in the hospital over the past 2 days and had wished to leave, however at this time is amenable to further testing. Denies current chest pain. Medications: Reviewed: Yes Vitals/I&O/Wt Last Vital Signs Temp 98.0 F 11/25/19 20:00 Pulse 62 11/25/19 20:00 Resp 18 11/25/19 20:00 BP 118/74 11/25/19 20:00 Pulse Ox 96 11/25/19 20:00 11/25/19 11/25/19 11/25/19 06:59 14:59 22:59 Intake Total 240 / 240 240 / 480 Output Total 600 / 1075 Balance -600 / 5 240 / 240 240 / 480 Weight last 48 hrs Weight 114.487 kg Weight 116.12 kg Weight 114.901 kg Physical Exam Narrative: EXAM NARRATIVE: GEN: Awake, alert and oriented, no acute distress CVS: S1S2 N RS: CTA B/L Abd: Soft, nt/nd , bs+ MERCHANDISING EXECUTION ASSOCIATE: no focal neuro deficits Data : 11/25/19 05:19 11/24/19 04:55 A&P Assessment and plan (1) Osteoarthritis: Status: Acute (2) Dyslipidemia: Status: Acute (3) Abnormal myocardial perfusion study: Status: Acute (4) Acute coronary syndrome: Status: Acute Additional A&P Information # NSTEMI - continue ASA, statin and full dose lovenox - Plavix added today -prn morphine for pain control - Stress test as noted above, planned for cardiac cath in morning - appreciate cardiology recommendsation s - Started on B blockers, TERESA to be started after cath # Hypertension: Currently well controlled. Stop HCTZ as TERESA started # dvt ppx: full dose lovenox Full code Attestations Medical Necessity Statement*: abnormal stress test, planned for angiogram Coding Level of Care Code Acute Technology Recruiter for Nathaniel Coombs Diagnoses Osteoarthritis M19.90 Dyslipidemia E78.5 Abnormal myocardial perfusion study R94.39 Acute coronary syndrome I24.9
[2019-11-26] VITALS (8 sets, daily range): BP systolic 91–122; BP diastolic 59–78; PULSE 58–77; RESP 18; TEMP 36.6–36.8; O2SAT 95–98
[2019-11-26] MEDS: enoxaparin 120 mg/0.8 mL Syringe 110 MG SUBCUT (00:08)
--- NOTE | 2019-11-26 00:14 | PC.NURSE ---
This nurse and MATRIX BATH ATTENDANT went in at the same time to do tasks so patient could get as much rest as possible. Patient was upset that Lovenox had to be given, vitals, and assessment had to be done. I explained the reasons for this. I explained that the patient had no more medications until 0800 and no more vitals until 0400 and we would do our best to allow patient to rest. Will continue to monitor.
--- NOTE | 2019-11-26 05:51 | PC.NURSE ---
Myself and the FINANCIAL INSTITUTION PRESIDENT have offered to prep the patient and offered to let the patient prep himself for his angiogram at different times this shift. Patient states We can do that later . Will report to the oncoming shift.
[2019-11-26 06:23] LABS: Basophils # 0.1 10^3/uL (0.0-0.1); Basophils % 0.7 %; Eosinophils # 0.2 10^3/uL (0.0-0.8); Eosinophils % 2.1 %; Hematocrit 48.3 % (42.0-52.0); Lymphocytes # 2.4 10^3/uL (0.8-4.8); Lymphocytes % 24.9 %; Mean Corpuscular HGB Conc 31.1 g/dL (30.0-36.0); Mean Corpuscular Hemoglobin 28.4 pg (28.0-34.0); Mean Corpuscular Volume 91.3 fL (80-94); Mean Platelet Volume 10.7 fL (7.4-10.4); Neutrophils # 5.9 10^3/uL (1.8-7.7); Neutrophils % 61.2 %; Nucleated Red Blood Cells % 0 %; Platelet Count 263 10^3/cmm (130-400); Red Blood Count 5.29 10^6/uL (4.1-5.3); Red Cell Distribution Width 12.8 % (12.1-15.1); White Blood Count 9.6 10^3/uL (4.0-10.0)
--- NOTE | 2019-11-26 06:39 | XACV_ITS ---
Exam Room: [facility] Ht: 183 cm Wt: 114 kg BSA: 2.45 m2 Gender: Male : 1945 Any Known Allergies: No known allergies Exam Priority: Routine Procedure(s): Procedure Description: Diagnostic procedure Procedure Description: Left Heart Catheterization Procedure Description: Left ventriculography Procedure Description: Coronary Angiography Diagnostic Cath Status: Urgent Diagnostic Findings pLAD to mLAD: Severe 95% stenosis, HOMERO: 3 flow. 1st Diag: Severe 80% stenosis, HOMERO: 1 flow. 1st Diag: Severe 95% stenosis, HOMERO: 3 flow. 1st OM: Severe 90% stenosis, HOMERO: 3 flow. pRCA: Moderate 60% stenosis, eccentric plaque, HOMERO: 3 flow. Coronary angiography shows right dominance. The left main is a medium caliber vessel which appears tapering narrowing from 20% distally. The LAD is a medium caliber vessel which appears to be subtotally occluded proximally involving the ostium of the first diagonal branch. The first diagonal branch is a medium caliber vessel which gives off a small side branch proximally. Soon after this branch, the artery has a segmental 80% lesion. No other significant stenotic lesions. The left circumflex artery is a medium caliber vessel which gives off a high obtuse marginal branch which has a 90% stenosis proximally,at the takeoff of a relatively small side branch. No other significant stenotic lesions were noted. The right coronary artery is a medium to large caliber dominant vessel which has a 60% eccentric narrowing near the ostium. The mid and distal artery was found to have mild diffuse disease. The PDA and the PLV branches were found to have minimal intimal irregularities with no significant stenotic lesions. The artery gives of significant [id number] collaterals to the LAD. Conclusions This is a 73-year-old white male, presenting with features of a non-ST elevation myocardial infarction. Abnormal myocardial perfusion imaging showing extensive areas of fixed defects in the distribution of the left and descending artery/circumflex artery with very small area of ischemia. LVejection fraction of 36% by the perfusion scan and normal ejection fraction by echocardiogram. Because of his ongoing symptoms, in order to further evaluate his coronary status, a cardiac catheterization was recommended. Patient underwent left heart catheterization with left and right coronary angiogram and LV angiogram today. The findings are as follows. Distal 20% tapering narrowing of the left main artery. Subtotal occlusion of the proximal left anterior descending artery, involving the ostium of the first diagonal branch. High-grade lesion in the mid segment of the diagonal branch after a good sized sidebranch. High-grade lesion in the first obtuse marginal branch of the circumflex artery. At least moderate disease in the ostium of the right coronary artery. Grade 3 [id number] collaterals. LV systolic dysfunction with ejection fraction of 40 to 45%. LVEDP of 20 mmHg. I discussed and reviewed the cardiac authorization data with Dr. Ardon. In view of the complexity of the LAD lesions, it was thought to be appropriate to consider surgical revascularization first. Patient was transferred back to medical floor stable condition. Recommendations Continue current medical management and risk factor modification. Diagnostic RX Recommendation: CABG Ejection Fraction: 40.0 % Left Ventriculography Findings: The LV gram was performed in the ARANA projection. The LV cavity appears to be of normal size. There was moderate hypokinesia of the mid and apical anterior wall segments. There was no filling defect. No significant mitral valve prolapse or mitral regurgitation. The LVEDP was around 20 mmHg. Pressures Phase:Rest AO : 89 mmHg / 58 mmHg ( 73 mmHg ) @ 4:37:00 AM 83 mmHg / 54 mmHg ( 68 mmHg ) @ 4:40:00 AM 141 mmHg / 69 mmHg ( 94 mmHg ) @ 4:59:00 AM 141 mmHg / 42 mmHg ( 93 mmHg ) @ 4:59:00 AM LV : 134 mmHg / 134 mmHg / @ 4:50:00 AM 126 mmHg / 12 mmHg / @ 4:57:00 AM 125 mmHg / 4 mmHg / @ 4:58:00 AM 127 mmHg / 5 mmHg / @ 4:59:00 AM Valves Phase:DefaultPhase AV : 0.0 mmHg @ 10:06:38 AM AV Mean Gradient: 0.0 mmHg @ 10:06:38 AM Clinical Evaluation EBL: 5mL-10mL Procedural Details Procedure Consent Obtained. Current Diagnosis : NSTEMI. Pre-Procedure Time Out. Identified patient by full name and date of as verbalized by the patient/guarantor. Does the consent match the physician's order: Yes. Accurate & Complete Informed Consent: Yes. Inpatient/Outpatient History & Physical on Chart: Yes. If H&P is completed, is and addenduem needed: No; If yes, is the addendum complete: N/A. Visualize and Verify Site with Patient/Guarantor: N/A. Relevant Radiology Images available: Yes. Pre-op teaching completed and patient verbalized understanding. The risks, benefits, and alternatives of sedation and/or procedure were discussed by physician. The patient agrees to continue. Procedure started. Correct patient, site and procedure confirmed by cath team. Current diagnosis: NSTEMI. PERRLA. Strong, equal hand sheet rock applier bilaterally. Lungs clear x 5 lobes. IV Site on Arrival: 18 gauge in the left anticubital. IV Fluids: 0.9% NaCl at KVO. 0 mL infused prior to medical lab scientist. Oxygen started at 2liters/min via nasal canula. right groin was prepped with chloroprep then draped in the usual sterile fashion. right radial was prepped with chloroprep then draped in the usual sterile fashion. Baseline sample Acquired. HR: 58 BPM. Patient's family unavailable due to patient visitor policy. Physician arrived. [facility] Clinical Fraility Score: 3: Managing Well. Work Over Rig Operator Indications: ACS > 24 hours. Chest Pain Symptom Assessment: Typical Angina Symptoms. Physician scrubbed in. Immediate Pre-Procedure Time Out. Correct Patient: Yes; Correct Procedure: Yes; Correct Site: Yes; Correct Patient Position: Yes; Correct Supplies: Yes; Dried Flammable Prep: Yes; Blood Products Available: N/A;. Lidocaine 1% infiltrated to the right radial. Arterial access obtained. A 5 australian Lemuel catheter in over wire. Multiple views taken of left coronary artery. Dr. Rodriguez here to review films. Catheter removed over the exchange wire. A 5 australian JR4 catheter in over wire. Multiple views taken of right coronary artery. Catheter removed over the exchange wire. A 5 australian Angled Pig catheter in over wire. EDP Sample taken: LV 134/134,33; HR: 175 BPM; SpO2: 98%. EDP Sample taken: LV 126/12,26; HR: 63 BPM; SpO2: 96%. LV gram performed in ARANA @ 10 mL/second for a total of 30 mL. EDP Sample taken: LV 125/4,25; HR: 59 BPM; SpO2: 96%. Pullback taken: LV 127/5,31; AO 141/69(94); Mean: 0mmHg, Peak to Peak: 0mmHg, SEP: 18sec/min; HR: 63 BPM; SpO2: 97%. Catheter removed over the exchange wire. Dr. Villalobos called to review case. Dr. Pacheco scrubbed out. TR band placed. Hemostasis obtained. A TR Band was successful obtaining hemostatsis at the Right Radial artery insertion site. Post Procedure: Pulses reassessed and unchanged. PERRLA. Strong, equal hand sheet rock applier bilaterally. No VTE prophylaxis required. Medication's Wasted: Lidocaine 1% = 18 mL. Medication's Wasted: Heparin = 1000 units. Medication's Wasted: Nitro = 49.8 mg. Total IV fluids: 300 mL. Contrast type used: Omnipaque 300 mgI/mL, 500 mL bottle. Post-op diagnosis: CABG consult. Complications: None. Estimated blood loss: 5mL-10mL. Procedure completed. Patient transferred by wheelchair to [address] [place] [address]. Vital chart was stopped. Site: Right Radial artery Sheath Size: 6 Fr Hemostasis Method: TR Band Hemostasis Success: Successful Procedure Medications Start: 9:27 AM Stop: 9:27 AM Medication: Versed Amount: 1 mg Route: I.V. Start: 9:27 AM Stop: 9:27 AM Medication: Fentanyl Amount: 50 mcg Route: I.V. Start: 9:29 AM Stop: 9:29 AM Medication: Versed Amount: 1 mg Route: I.V. Start: 9:30 AM Stop: 9:30 AM Medication: Verapamil Amount: 5 mg Route: I.A. Start: 9:34 AM Stop: 9:34 AM Medication: Nitrogylcerin Amount: 100 mcg Route: I.A. Start: 9:30 AM Stop: 9:30 AM Medication: 0.9% Saline Amount: 250 ml Route: I.V. bolus Start: 9:36 AM Stop: 9:36 AM Medication: Heparin Amount: 5000 units Route: I.V. I, the attending physician, have reviewed and verified all procedure medications. Yes, all medications given per verbal order History/Risk Factors Hypertension: No Dyslipidemia: Yes Peripheral Arterial Disease (PAD): No Myocardial Infarction (UT): No Obesity: Yes Renal Disease: No Tobacco Use: Former Prior Interventions PCI: No CABG: No Valve Surgery: No Report Signatures Finalized by:Dr Rafael Pacheco MD [facility] on 11/26/2019 11:34:45 AM
[2019-11-26 06:42] LABS: D Dimer <= 0.27 ug/mIFEU (0-0.59)
[2019-11-26 06:48] LABS: Troponin T (5th) Once 313 ng/mL (0-15)
--- NOTE | 2019-11-26 08:58 | P.PN_ITS ---
Subjective Subjective: Interval history: Patient is feeling okay. He does not have any chest pain or chest tightness this morning. No unusual shortness of breath. Vital signs remained stable. No arrhythmias on the monitor. Medications: Reviewed: Yes Medication Review Details: Current Medications Acetaminophen (Tylenol) 650 mg PO Q6H PRN PRN Reason: Mild/Mod Pain Or Temp >/= 101 Last Admin: 11/24/19 08:58 Dose: 650 mg Documented by: Alprazolam (Xanax) 0.25 mg PO BID PRN PRN Reason: ANXIETY Last Admin: 11/25/19 19:53 Dose: 0.25 mg Documented by: Aspirin (Aspirin Ec) 81 mg PO DAILY [facility] Last Admin: 11/25/19 09:44 Dose: 81 mg Documented by: Atorvastatin Calcium (Lipitor) 40 mg PO BEDTIME [facility] Last Admin: 11/25/19 19:53 Dose: 40 mg Documented by: Clopidogrel Bisulfate (Plavix) 75 mg PO DAILY [facility] Enoxaparin Sodium (Lovenox) 110 mg SUBCUT Q12H [facility] Last Admin: 11/26/19 00:08 Dose: 110 mg Documented by: Sodium Chloride (Sodium Chloride 0.9%) 1,000 mls @ 50 mls/hr IV .Q20H ONE Stop: 11/27/19 03:59 Lisinopril (Prinivil) 5 mg PO DAILY [facility] Metoprolol Tartrate (Lopressor) 12.5 mg PO BID [facility] Morphine Sulfate (Morphine) 2 mg IVP Q4H PRN PRN Reason: SEVERE PAIN Last Admin: 11/24/19 20:12 Dose: 2 mg Documented by: Nitroglycerin (Nitrostat) 0.4 mg SUBLINGUAL Q5M PRN PRN Reason: CHEST PAIN Ondansetron HCl (Zofran) 4 mg IVP Q6H PRN PRN Reason: NAUSEA AND VOMITING Ondansetron HCl (Zofran) 4 mg IVP Q2M PRN PRN Reason: NAUSEA Oxycodone/Acetaminophen (Percocet 5-325 Mg) 1 tab PO BID PRN PRN Reason: Pain Pantoprazole Sodium (Protonix) 40 mg PO DAILY [facility] Last Admin: 11/25/19 09:44 Dose: 40 mg Documented by: Vitals/I&O/Wt Last Vital Signs Temp 98.3 F 11/26/19 07:44 Pulse 70 11/26/19 08:28 Resp 18 11/26/19 07:44 BP 118/75 11/26/19 07:44 Pulse Ox 95 11/26/19 08:28 11/25/19 11/26/19 11/26/19 22:59 06:59 14:59 Intake Total 240 / 480 Output Total 740 / 740 Balance 240 / 480 -740 / -260 Weight last 48 hrs Weight 252 lb 6.4 oz Weight 256 lb Physical Exam Narrative: EXAM NARRATIVE: GENERAL: The patient is alert and oriented times three. Moderately obese. Not in any acute distress. HEENT: No significant pallor, icterus or lymphadenopathy. The pupils are reactant to light. Oral cavity: There are no mucous membrane lesions. NECK: Trachea appears to be central. No masses noted. No JVD or thyromegaly appreciated. No carotid bruit. RESPIRATORY: Chest is symmetrical. No intercostals muscle retraction or any accessory muscle activation. There is no chest wall tenderness. Breath sounds are heard bilaterally. No rales or rhonchi heard. No evidence of any consolidation. BREASTS: Deferred. HEART: T the PMI could not be palpated. No other palpable precordial events. First and second heart sounds are normal. No S3. No significant murmurs. ABDOMEN: No vessel pulsations or distention. No tenderness. No organomegaly appreciated. No abdominal bruit. Bowel sounds are normally heard. : Deferred. RECTAL: Deferred. LYMPHATIC: No lymphadenopathy noted in the neck or groin. EXTREMITIES: Trace edema both lower extremities. No cyanosis. Peripheral pulses are palpable and fairly good volume and amplitude. MUSCULOSKELETAL: No acute joint deformities or swelling SKIN: There are no significant scars or skin rash noted. NEUROPSYCHIATRIC: The patient is alert and oriented x3. Appears to be in a good mood. The higher functions are grossly within normal limits. No tremors or rigidity noted. Data : 11/26/19 06:08 11/24/19 04:55 Other Labs: Abnormal lab results 11/26/19 11/26/19 Range/Units 06:08 06:08 MPV 10.7 H (7.4-10.4) fL [place] # (Auto) 1.0 H (0.2-0.9) 10^3/uL Troponin T Gen 5 ng/L 313 H* (0-15) ng/mL A&P Assessment and plan (1) Acute coronary syndrome: Patient's clinical features are consistent with an acute coronary syndrome complicated with non-ST elevation myocardial infarction. Currently he seems to be stable hemodynamically. He continues to have exertional angina and shortness of breath. He came with an elevated troponin T and significant delta. Currently the troponin T is trending downwards. Echocardiogram was unremarkable. Will go ahead and do the cardiac authorization today. Based on the angiogram fi ndings, further management decisions will be made D-dimer was within normal limits. No evidence of pulmonary embolism. . Status: Acute (2) Abnormal myocardial perfusion study: The myocardial perfusion imaging findings are suggestive of myocardial scarring with ischemia in the distribution of the left and descending artery. However the echocardiogram did not reveal any significant wall motion normalities. A noncardiac etiology cannot be excluded. I may do a d-dimer to look for any evidence of venous thromboembolism Status: Acute (3) Dyslipidemia: May continue on the Lipitor Status: Acute (4) Morbid obesity due to excess calories: May continue on the dietary modifications Status: Acute Additional A&P Information Based on the cardiac catheterization findings, further recommendations will be made. Attestations Medical Necessity Statement*: Patient requires continued hospital stay for close monitoring and further management Coding Level of Care Code Acute Utility Sales Representative for Nathaniel Coombs Diagnoses Acute coronary syndrome I24.9 Abnormal myocardial perfusion study R94.39 Dyslipidemia E78.5 Morbid obesity due to excess calories E66.01
[2019-11-26] MEDS: sodium chloride 0.9% 1,000 ML 50 ML IV (09:00)
[2019-11-26] MEDS: clopidogrel 75 mg Tablet PO (09:00)
[2019-11-26] MEDS: aspirin 81 mg EC Tablet PO (09:00)
[2019-11-26] MEDS: pantoprazole DR 40 mg Tablet PO (09:00)
[2019-11-26] MEDS: metoprolol tartrate 25 mg Tablet 12.5 MG PO (09:00)
[2019-11-26] MEDS: lisinopril 5 mg Tablet PO (09:00)
[2019-11-26] MEDS: diphenhydrAMINE 50 mg Capsule PO (09:00)
--- NOTE | 2019-11-26 09:01 | PC.SOCIAL ---
IM initial explained and signed by patient. Initialed by this nurse and copy given. Original placed in chart.
--- NOTE | 2019-11-26 09:03 | W.PM.OPSUD ---
Surgery/Procedure H&P Update DATE OF PROCEDURE: November 26, 2019 DATE H&P PERFORMED: 11/26/19 PLANNED PROCEDURE: Operation Date: 11/26/19 10:30 Proposed Procedures p Cardiac Catheterization(Left) - Rafael Pacheco MD PHYSICAL EXAM: alert, oriented x 3, clear to auscultation bilaterally and regular rate & rhythm AIRWAY EVAL/ANESTHESIA PLAN: ASA III, Local Anesthesia, Risks, benefits & alternatives of sedation and/or procedure discussed and Patient agrees to continue as planned
--- NOTE | 2019-11-26 11:21 | P.PN_ITS ---
Vitals/I&O/Wt Last Vital Signs Temp 98.3 F 11/26/19 07:44 Pulse 58 L 11/26/19 10:14 Resp 18 11/26/19 10:14 BP 120/77 11/26/19 10:14 Pulse Ox 98 11/26/19 10:14 11/25/19 11/26/19 11/26/19 22:59 06:59 14:59 Intake Total 240 / 480 Output Total 740 / 740 400 / 400 Balance 240 / 480 -740 / -260 -400 / -400 Weight last 48 hrs Weight 114.487 kg Data : 11/26/19 06:08 11/24/19 04:55 Coding Level of Care Code Acute Car Mechanic Helper for Chg Malvin
--- NOTE | 2019-11-26 14:04 | PM.CONSULT ---
Providers/Reason For Consult Consulting Physican/Specialty*: Dr. Villalobos, cardiothoracic surgery Reason for Consult*: Coronary artery disease, non-STEMI Requesting Physcian: Dr. Pacheco Attending Physician: Nicol Castaneda MD Primary Care Provider: Bryan Saez DO History of Present Illness History of Present Illness Abelino Mcqueen is a 73 year old male whom I was contacted by phone earlier today by Dr. Pacheco to evaluate to consider surgery vascular visitation for severe coronary artery disease. Patient currently resting comfortably on the second floor and pain-free. He originally presented after being seen in the urgent care clinic with complaints of difficulty breathing and chest discomfort for 3days in a row previously. He was therefore admitted on November 22 and treated for acute coronary syndrome protocol. He did have elevated troponins consistent with a non-STEMI. Sestamibi scan was performed on the which revealed normal EKG without chest discomfort during the study. Subsequent nuclear images were consistent with ischemia. Left heart catheterization performed earlier today by Dr. Pacheco revealed subtotaled LAD with proximal diagonal disease. He also has 90% OMB stenosis. RCA is large caliber and dominant with a 6% proximal stenosis with right to left collateralization to the LAD via septals. He tolerated catheterization well without incident. Risk factors include prior history for tobacco use with a [id number] history, morbid obesity, and a history of hypertension. I have personally reviewed the left heart catheterization. Review of Systems Const: Reports: change in weight (Reports approximate 50 pound weight loss over the past year related to a keto diet.); Denies: fever or chills Card: Reports: chest pain, swelling of feet/ankles and shortness of breath on exertion Resp: Reports: shortness of breath (With only minimal exertion.) GI: Reports: abdominal pain Neuro: Denies: headache or slurred speech Psych: Denies: anxiety Meds/Allergies Home Medications and Allergies Home Medications Medication Instructions Recorded Confirmed Last Taken Type Vitamin D3 1 tab PO DAILY 11/23/19 11/23/19 Unknown History aspirin-caffeine [Hina Back and 2 tab PO BEDTIME PRN 11/23/19 11/23/19 11/21/19 History Body] hydrochlorothiazide 25 mg PO DAILY 11/23/19 11/23/19 11/23/19 History magnesium oxide 400 mg PO DAILY 11/23/19 11/23/19 Unknown History meloxicam 15 mg PO DAILY 11/23/19 11/23/19 11/23/19 History oxycodone-acetaminophen 1 tab PO BID PRN 11/23/19 11/23/19 Unknown History potassium gluconate 595 mg PO DAILY 11/23/19 11/23/19 Unknown History Allergies Allergy/AdvReac Type Severity Reaction Status Date / Time No Known Allergies Allergy Verified 11/23/19 10:14 Current Medications Current Medications Generic Name Dose Route Start Last Admin Trade Name Freq PRN Reason Stop Dose Admin Acetaminophen 650 mg 11/23/19 13:59 11/24/19 08:58 Tylenol PO 650 mg Q6H PRN Administration Mild/Mod Pain Or Temp >/= 101 Alprazolam 0.25 mg 11/23/19 18:28 11/25/19 19:53 Xanax PO 0.25 mg BID PRN Administration ANXIETY Aspirin 81 mg 11/24/19 09:00 11/26/19 09:00 Aspirin Ec PO 81 mg DAILY FLY Administration Atorvastatin Calcium 40 mg 11/23/19 14:10 11/25/19 19:53 Lipitor PO 40 mg BEDTIME FLY Administration Clopidogrel Bisulfate 75 mg 11/26/19 09:00 11/26/19 09:00 Plavix PO 75 mg DAILY FLY Administration Enoxaparin Sodium 110 mg 11/26/19 01:00 11/26/19 00:08 Lovenox SUBCUT 110 mg Q12H FLY Administration Sodium Chloride 1,000 mls @ 50 mls/hr 11/26/19 08:00 11/26/19 09:00 Sodium Chloride 0.9% IV 11/27/19 03:59 50 mls/hr .Q20H ONE Administration Lisinopril 5 mg 11/26/19 09:00 11/26/19 09:00 Prinivil PO 5 mg DAILY FLY Administration Metoprolol Tartrate 12.5 mg 11/26/19 09:00 11/26/19 09:00 Lopressor PO 12.5 mg BID FLY Administration Morphine Sulfate 2 mg 11/23/19 13:59 11/24/19 20:12 Morphine IVP 2 mg Q4H PRN Administration SEVERE PAIN Pantoprazole Sodium 40 mg 11/25/19 09:00 11/26/19 09:00 Protonix PO 40 mg DAILY [facility]Y Administration PFSH Acute PFSH: Medical History (Updated 11/26/19 @ 14:10 by Nicolas Villalobos MD) 3-vessel CAD Abnormal myocardial perfusion study Acute coronary syndrome Cholecystitis Dyslipidemia Morbid obesity due to excess calories Osteoarthritis Rectal bleed Social History Smoking and tobacco status: former smoker Alcohol intake: never Substance/Drug Use: never Vitals/I&O/Wt Last Vital Signs Temp 98.3 F 11/26/19 07:44 Pulse 58 L 11/26/19 10:14 Resp 18 11/26/19 10:14 BP 120/77 11/26/19 10:14 Pulse Ox 98 11/26/19 10:14 11/25/19 11/26/19 11/26/19 22:59 06:59 14:59 Intake Total 240 / 480 354 / 354 Output Total 740 / 740 400 / 400 Balance 240 / 480 -740 / -260 -46 / -46 Weight last 48 hrs Weight 249 lb 4 oz Weight 252 lb 6.4 oz Physical Exam Const: COMMON NORMALS: oriented x3 and alert ORIENTATION/CONSCIOUSNESS: Yes oriented to person, Yes oriented to place and Yes oriented to time HENMT: COMMON NORMALS: normocephalic HEAD & SCALP: normocephalic; no cranial bruits Neck/C-Spine: COMMON NORMALS: full ROM, supple, no JVD and no carotid bruits GENERAL: Yes trachea midline CERVICAL SPINE: Yes cervical ROM normal Chest: COMMONS NORMALS: inspection of chest normal and palpation of chest normal Resp: COMMON NORMALS: normal respiratory effort, no use of accessory muscles, clear to auscultation bilaterally and percussion normal EFFORT & INSPECTION: Yes able to speak in complete sentences and Yes symmetric chest movement AUSCULTATION: clear to auscultation bilaterally PERCUSSION: percussion normal Cardio: COMMON NORMALS: no JVD, regular rate, regular rhythm, S1 normal heart sound, S2 normal heart sound, no gallops, no murmurs, no rub and peripheral pulses 2+ throughout JUGULAR VENOUS DISTENTION: no JVD RATE: regular rate RHYTHM: regular rhythm HEART SOUNDS: S1 normal and S2 normal PERIPHERAL PULSES: pulses 2+ throughout GI: AUSCULTATION: Yes normoactive bowel sounds PERCUSSION: normal to percussion OTHER: Large abdomen Extremity: NARRATIVE EXTREMITY EXAM: 1+ lower extremity edema bilaterally Neuro: COMMON NORMALS: oriented x3, no focal motor deficits and no sensory deficits noted SENSORIUM/ORIENTATION: Yes alert, Yes oriented to person, Yes oriented to place and Yes oriented to time GAIT: Yes normal gait A&P Assessment and plan (1) 3-vessel CAD: Morbidly obese gentleman with three-vessel coronary disease admitted with non-STEMI. I have reviewed the left heart catheterization and conferred with Dr. Pacheco to call me by phone. Rationale to consider surgery vascularization carefully discussed with Mr. Mcqueen. Increased risk related to his severe coronary artery disease, episodes of unstable angina, and morbid obesity were very frankly explained. I reviewed with him our initial patient education materials and I have discussed his specific anatomy. Conduct of coronary artery bypass grafting was also reviewed. Details and risks of CABG were carefully and frankly reviewed. Risks discussed include the possibility of , stroke, heart attack, major bleeding possibly requiring the need to reopen chest, infection, pneumonia, organ failure, failure to benefit, early closure of the bypass grafts, inability to complete the procedure, prolonged hospitalization, blood clots to lungs or other organs, need for further interventions, continued pain after surgery, need for future surgery, and possible long-term bleeding risk secondary to medication requirements. All questions were answered. His particular risk factors were very frankly discussed. He wishes for discharge and wishes to discuss matters further with his family. I have recommended that his discharge be cleared with Dr. Castaneda and Dr. Pacheco. Since he is considering surgery, I would recommend holding his Plavix. He has received 2 doses, 1 yesterday and today. If he subsequently agrees to surgery, I would recommend proceeding most probably on Thursday, November 29. Status: Acute Consult Attestations Medical Necessity Statement: Three-vessel coronary artery disease with non-STEMI Time Spent in Patient Care: Greater than 35 minutes Coding Level of Care Code New Pt Acute Steak Sauce Maker for Chg Fwd Patient Type New Exam Comprehensive Medical Decision Making Moderate Complexity Diagnoses 3-vessel CAD I25.10 Time Spent (min) 55
--- NOTE | 2019-11-26 15:09 | PM.DCS ---
Discharge Providers Date of Admission: 11/23/19 13:06 Date of Discharge: November 26, 2019 Attending Provider at Admission: Lake Michaels MD Attending Provider at Discharge: Nicol Castaneda MD Primary Care Provider: Bryan Saez DO Diagnoses at Discharge Discharge Diagnosis (1) 3-vessel CAD: Status: Acute (2) Acute coronary syndrome: Status: Acute (3) NSTEMI (non-ST elevated myocardial infarction): Status: Acute Reason for Visit Reason for Visit: Reason For Visit: NSTEMI Hospital Course Discharge Summary: Abelino Mcqueen is a 73 year old male with PMH HTN, h/o smoking who presents today with chief complaint of chest pain that started 3 days prior to admission. Features were consistent with acute coronary syndrome complicated by an NSTEMI as evidenced by elevated troponins.. He continues to have exertional angina and shortness of breath. Initially he underwent a stress test which showed myocardial scarring with ischemia in the distribution of the left and descending artery. However his echocardiogram did not reveal any significant wall motion abnormalities. He underwent coronary angiogram earlier today and was found to have triple-vessel disease. CABG was recommended and he was seen by by Dr. Villalobos from [facility]. At this time, patient remains undecided about proceeding with surgery and wishes to be discharged home to further discuss with his family and to process all information. He understands the risks at time of discharge given ongoing anginal symptoms. he currently feels asymptomatic without chest pain or dyspnea. He is being discharged on ASA, statin, lisinopril and metoprolol. Plavix is being held as he should be considering surgery soon. Physical Exam Narrative: EXAM NARRATIVE: GEN: Awake, alert and oriented, no acute distress CVS: S1S2 N RS: CTA B/L Abd: Soft, nt/nd , bs+ CLIENT RELATIONS SPECIALIST: no focal neuro deficits Discharge Data Data Completed and Pending: Completed Studies During Hospitalization Category Date Time Status COMMUNITY RELATIONS ASSISTANT request for service Routin e Exams 11/26/19 06:39 Completed Sestamibi Stress Test Request Routi ne Exams 11/24/19 08:59 Completed XR chest 1V raissa ble [id number] Stat Exams 11/23/19 11:58 Completed NM sohail perf SPECT r/s* [id number] Routin e Nuc Med 11/25/19 12:19 Completed CV echo complete* [id number] Routine Ultrasound 11/25/19 14:28 Completed Pending at discharge Category Date Time Status Sestamibi Stress Test Request Han ne Exams 11/24/19 12:19 Ordered Labs from last 24 hours 11/26/19 11/26/19 11/26/19 06:08 06:08 06:08 WBC 9.6 RBC 5.29 Hgb 15.0 Hct 48.3 MCV 91.3 MCH 28.4 MCHC 31.1 RDW 12.8 Plt Count 263 MPV 10.7 H Neut % (Auto) 61.2 Lymph % (Auto) 24.9 Bertie % (Auto) 10.0 Eos % (Auto) 2.1 Baso % (Auto) 0.7 Neut # (Auto) 5.9 Lymph # (Auto) 2.4 Bertie # (Auto) 1.0 H Eos # (Auto) 0.2 Baso # (Auto) 0.1 Nucleated RBC % (a uto) 0 Nucleated RBCs # 0.0 D-Dimer <= 0.27 Troponin T Gen 5 n g/L 313 H* Vitals: Last Vital Signs Temp 98.3 F 11/26/19 07:44 Pulse 63 11/26/19 14:17 Resp 18 11/26/19 14:17 BP 107/70 11/26/19 14:17 Pulse Ox 97 11/26/19 14:17 Discharge Plan Discharge Patient Disposition: Home, Self-Care Condition: Stable Prescriptions: New aspirin 81 mg Tablet,Delayed Release (Dr/Ec) 81 mg PO DAILY 30 Days Qty: 30 RF: 0 pantoprazole 40 mg Tablet,Delayed Release (Dr/Ec) 40 mg PO DAILY Qty: 0 RF: 0 lisinopril 5 mg Tablet 5 mg PO DAILY 30 Days Qty: 30 RF: 0 nitroglycerin [Nitrostat] 0.4 mg Tablet, Sublingual 0.4 mg sublingual Q5M PRN (Reason: Chest Pain) 30 Days Qty: 60 RF: 0 atorvastatin 40 mg Tablet 40 mg PO BEDTIME 30 Days Qty: 30 RF: 0 metoprolol tartrate 25 mg Tablet 12.5 mg PO BID 30 Days Qty: 60 RF: 0 Continued oxycodone-acetaminophen 5-325 mg tablet 1 tab PO BID PRN (Reason: Pain) RF: 0 magnesium oxide 400 mg magnesium Tablet 400 mg PO DAILY RF: 0 Vitamin D3 1 tab PO DAILY RF: 0 Discontinued meloxicam 15 mg tablet 15 mg PO DAILY RF: 0 hydrochlorothiazide 25 mg tablet 25 mg PO DAILY RF: 0 potassium gluconate 595 mg (99 mg) Tablet 595 mg PO DAILY RF: 0 Hina Back and Body 500-32.5 mg Tablet 2 tab PO BEDTIME PRN (Reason: unknown) RF: 0 Discharge Orders: Discharge Order (Routine); Ordered 11/26/19 Ordered By: Nicol Castaneda Referrals: Rafael Pacheco MD [Physician] - Nicolas Villalobos MD [Physician] - 4-7 days Discharge Diet: Cardiac, Low Salt, Low Cholesterol and Low Fat Discharge Activity: Resume usual activity Discharge Attestations Time Spent in Discharge Care*: greater than 30 min Quality Metrics Clinical Quality Measures During this hospital stay, did patient experience: AMI Clinical Trial Participant: No Contraindication to aspirin (AMI): Aspirin given Contraindication to statin: Statin prescribed Coding Level of Care Code Acute Odd Job Worker for Nathaneil Coombs Diagnoses 3-vessel CAD I25.10 Acute coronary syndrome I24.9 NSTEMI (non-ST elevated myocardial infarction) I21.4
== END 2019-11-26 15:57 | disposition home or self-care (01) | DRG 282 ==
LOC: ER 13:49 → MEDSURG 14:58
PROVIDERS: Emergency Medicine; Internal Medicine Cardiovascular Disease; Admitting Provider Student in an Organized Health Care Education/Training Program; Emergency Provider Family Medicine; Family Provider Internal Medicine; PCP Internal Medicine; Visit Provider Student in an Organized Health Care Education/Training Program
PROC: 4A023N7 Measurement of Cardiac Sampling and Pressure, Left Heart, Percutaneous Approach (ICD-10-PCS; principal; 2019-11-26 10:30)
DX: I21.4 Non-ST elevation (NSTEMI) myocardial infarction (principal); I25.10 Atherosclerotic heart disease of native coronary artery without angina pectoris; I10 Essential (primary) hypertension; Z87.891 Personal history of nicotine dependence; E66.01 Morbid (severe) obesity due to excess calories; Z68.34 Body mass index [BMI] 34.0-34.9, adult; I25.2 Old myocardial infarction; R94.39 Abnormal result of other cardiovascular function study; M19.90 Unspecified osteoarthritis, unspecified site; I24.9 Acute ischemic heart disease, unspecified; E78.5 Hyperlipidemia, unspecified; Z79.891 Long term (current) use of opiate analgesic
CPT/HCPCS: 12345; 36415; 71045; 78452; 80053; 80061; 83036; 83880; 84443; 84484; 85025; 85378; 93005; 93017; 93306; 93452; 96372; 96375; 99283; A9500; C1769; C1887; C1894; J1644; J1650; J2001; J2250; J2270; J2785; J3010; J3490; J7030; Q0163; Q9967

== ENCOUNTER 2020-02-08 09:59 | Outpatient (CLI) | payer MEDICARE, OTHER, SELFPAY ==
--- NOTE | 2020-02-08 | USCV_ITS ---
Charisse, Jack Age: 74 Gender: M : 1945 Exam Date: 02/08/2020 10:42 Ordering Phys: Rafael Pacheco MD ([email or web address]) Technologist: Raiza Wen Exam Location: [facility] [place] Indication: ISCHEMIC CARIOMYOPATHY BP: / HR: 56 Rhythm: Sinus Technical Quality: Technically difficult study MEASUREMENTS (Male / Female) Normal Values 2D ECHO LV Diastolic Diameter PLAX 4.6 cm 4.2 - 5.9 / 3.9 - 5.3 cm LV Systolic Diameter PLAX 3.7 cm LV Chamber Size 2.7 cm IVS Diastolic Thickness 1.4 cm 0.6 - 1.0 / 0.6 - 0.9 cm IVS Systolic Thickness 1.3 cm LVPW Diastolic Thickness 2.2 cm 0.6 - 1.0 / 0.6 - 0.9 cm LVPW Systolic Thickness 2.4 cm RV Chamber Size 2.3 cm LVOT Diameter 2.0 cm LV Ejection Fraction 2D Teich 39.8 % LV Ejection Fraction MOD 2C 78.6 % LV Ejection Fraction 2C AL 78.1 % LA Diameter 4.6 cm LA Width 3.4 cm LA Height 4.7 cm RA Width 3.3 cm RA Height 3.4 cm Aorta at Sinotubular Diameter 2.9 cm M-MODE LV Diastolic Diameter MM 3.9 cm 4.2 - 5.9 / 3.9 - 5.3 cm LV Systolic Diameter MM 2.9 cm LV Ejection Fraction MM Teich 50.7 % IVS Diastolic Thickness MM 0.5 cm 0.6 - 1.0 / 0.6 - 0.9 cm IVS Systolic Thickness MM 0.7 cm LVPW Diastolic Thickness MM 0.8 cm 0.6 - 1.0 / 0.6 - 0.9 cm LVPW Systolic Thickness MM 1.4 cm Aortic Annulus Diameter 3.2 cm LA Ao Ratio MM 1.5 MV E Point Septal Separation 1.0 cm DOPPLER AV Peak Velocity 139.0 cm/s LVOT Peak Velocity 106.0 cm/s AV Area Cont Eq vti 2.8 cm squared AV Area Cont Eq pk 2.4 cm squared MV Area PHT 3.0 cm squared Mitral E to A Ratio 1.4 MV E' Velocity 12.0 cm/s Mitral E to MV E' Ratio 9.8 Mitral E to LV E' Lateral Ratio 7.6 Mitral E to LV E' Septal Ratio 14.1 TR Peak Velocity 177.0 cm/s TR Peak Gradient 12.5 mmHg TV Peak E Velocity 79.0 cm/s Right Atrial Pressure 3.0 mmHg Pulmonary Artery Systolic Pressu 15.5 mmHg PV Peak Velocity 92.0 cm/s RV Acceleration Time 0.1 s RV Ejection Time 0.3 s RV AcT/ET 0.3 FINDINGS Left Ventricle Normal left ventricular size and systolic function, EF 75 %. Mild left ventricular hypertrophy. No regional wall motion abnormalities. Right Ventricle Normal right ventricular size and systolic function. Right Atrium The right atrium is normal in size. Left Atrium The left atrium is normal in size. Mitral Valve Mild mitral annular calcification. Aortic Valve Thickened aortic valve. Tricuspid Valve No gross abnormalities noted Pulmonic Valve Structurally normal pulmonic valve without significant stenosis. There is no pulmonic regurgitation. Pericardium No pericardial effusion. Aorta Normal ascending aorta dimension. CONCLUSIONS Normal left ventricular size and systolic function, EF 75 %. Mild left ventricular hypertrophy. No gross wall motion abnormalities. Thickened aortic valve. Mild mitral annular calcification. No significant stenotic or ureteral lesions There is no pericardial effusion. There are no intracardiac masses. Technically difficult study because of the poor ultrasonic window. Compared to the study from 11/25/2019, there may not be a significant change Dr Rafael Pacheco MD [facility] (Electronically Signed) Final Date: 08 February 2020 17:47 S
--- NOTE | 2020-02-08 11:00 | USCV_ITS ---
Abelino Mcqueen Age: 74 Gender: M : 1945 Exam Date: 02/08/2020 10:28 Ordering Phys: Rafael Pacheco MD ([email or web address]) Technologist: Yunier Turner Exam Location: [facility] [place] Indication: SWELLING HISTORY: Lower extremity swelling. PROCEDURES: Venous duplex imaging was performed in only the right lower extremity. The following venous structures were evaluated: common femoral vein, profunda vein, proximal portion of the greater saphenous vein, superficial femoral vein, and the popliteal vein. In addition, the posterior tibial and peroneal trunk were evaluated. Serial compression, augmentation maneuvers, and spectral Doppler flow evaluation were performed. FINDINGS: Normal 2-D Doppler and augmentation and compressibility throughout the lower extremity venous structures. Additional imaging through the proximal calf veins also reveals no thrombus. Limited evaluation of the greater saphenous vein is patent with no thrombus.. CONCLUSIONS No evidence of DVT in the above-mentioned identifiable veins. Dr Rafael Pacheco MD [facility] (Electronically Signed) Final Date: 08 February 2020 17:40 S
== END 2020-02-08 10:00 | disposition home or self-care (01) ==
LOC: RAD 10:03
PROVIDERS: Family Provider Internal Medicine; PCP Internal Medicine; Visit Provider Internal Medicine Cardiovascular Disease
DX: I25.5 Ischemic cardiomyopathy (principal); M79.89 Other specified soft tissue disorders; I35.8 Other nonrheumatic aortic valve disorders
CPT/HCPCS: 93306; 93971

== ENCOUNTER → 2020-04-30 16:35 | Outpatient (BNVA) | payer MEDICARE, OTHER, SELFPAY | PROVIDERS: Family Provider Internal Medicine; PCP Internal Medicine; Visit Provider Nurse Practitioner | DX: N39.0 Urinary tract infection, site not specified (principal); R35.0 Frequency of micturition | CPT/HCPCS: 81000; 87086 ==

== ENCOUNTER → 2020-11-23 10:26 | Outpatient (BNVA) | payer MEDICARE, OTHER, SELFPAY | PROVIDERS: Family Provider Internal Medicine; PCP Internal Medicine; Visit Provider Surgery | DX: Z01.812 Encounter for preprocedural laboratory examination (principal); Z20.822 Contact with and (suspected) exposure to COVID-19 | CPT/HCPCS: 87635 ==

== ENCOUNTER 2020-11-29 06:27 | Day surgery (SDC) | payer MEDICARE, OTHER, SELFPAY ==
[2020-11-28 15:32] VITALS: BMI 36.2
[2020-11-29 06:53] VITALS: BP 107/70; PULSE 60; RESP 18; TEMP 36.3; O2SAT 93
[2020-11-29] MEDS: sodium chloride 0.9% 1,000 ML 30 ML IV (07:20)
--- NOTE | 2020-11-29 07:48 | P.ANESASSM_ITS ---
Pre-Anesthetic Assessment Pre-Anesthetic Assessment: Height/Weight: Height 1.8 m Weight 117.934 kg Temp Pulse Resp BP Pulse Ox 97.3 F L 60 18 107/70 93 11/29/20 06:53 11/29/20 06:53 11/29/20 06:53 11/29/20 06:53 11/29/20 06:53 Preop Diagnosis: anortecal pain Proposed Procedure: Operation Date: 11/29/20 08:00 Proposed Procedures p flexible Sigmoidoscopy [id number] k62.89 k92.1(Not Applicable) - Andrea Huyhn MD s Anal dialation(Not Applicable) - Andrea Huynh MD Familial anesthetic complications: none Was Beta Claudia taken within 24 hours: Yes Last intake: Intake Last Liquid Date 11/28/20 Last Liquid Time 18:00 Last Solid Date 11/27/20 Last Solid Time 18:00 Social: Social History: No alcohol and No tobacco Exam: Pre-Anes Outpt Exam: alert, oriented x 3, clear to auscultation bilaterally and regular rate & rhythm Airway: Submandibular: WNL Cervical ROM: WNL MP: 2 Dentition: Chipped and Full Pulmonary: Pulmonary: None reported CV/HEM: CV/HEM: Angina (Stable), CAD, HTN and VA (December 2019 CABG x3) : : None reported Hepatic: Hepatic: None reported GI: GI: GERD (controlled) Metabolic: Metabolic: Hyperlipidemia and Morbid obesity Musc/skel: Musc/skel: Lower Back Pain and Weakness Neuropsych: Neuropsych: None reported Anesthetic Plan: ASA status: 3 Anesthesia: MAC Risk of > 500 ml blood loss (7ml/kg in children): No PFSH Anesthesia PFSH: Medical History 3-vessel CAD Abnormal myocardial perfusion study Acute coronary syndrome Atherosclerosis of coronary artery of [place] Cardiomyopathy Cholecystitis Dyslipidemia Leg swelling Morbid obesity due to excess calories Osteoarthritis Recent myocardial infarction Rectal bleed Surgical History History of arthroscopy of both shoulders Hx of arthroscopic knee surgery Hx of cholecystectomy Hx of heart surgery Family History Father CAD (coronary artery disease) Other Hyperlipidemia Hypertension Denies family history of Diabetes Clotting disorder Dementia Chronic kidney disease (CKD) Suicide Anesthesia complication Bleeding disorder Lung disease Cancer Stroke Social History Smoking and tobacco status: former smoker Alcohol intake: never Data Anesthesia Cardiac Studies: No Data to Display
--- NOTE | 2020-11-29 07:58 | ECG_ITS ---
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 Measurements Intervals [place] Rate: P: [place]: QRS: 0 QRSD: T: 0 QT: QTc: Interpretive Statements SINUS BRADYCARDIA INDETERMINATE AXIS ABNORMAL RHYTHM ECG WARNING: DATA QUALITY MAY AFFECT INTERPRETATION Compared to ECG 11/23/2019 16:12:14 Sinus rhythm no longer present Incomplete right bundle-branch block no longer present Left anterior fascicular block no longer present Myocardial infarct finding no longer present Electronically Signed On 11-30-2020 7:47:21 CDT by Za Salgado M.D. [email or web address]
[2020-11-29] MEDS: metroNIDAZOLE IV 500 MG/100 ML PREMIX 100 MG IV (08:45)
[2020-11-29 09:18] VITALS: BP 118/63; PULSE 74; RESP 12; TEMP 36.7; O2SAT 94
[2020-11-29 09:20] VITALS: PULSE 71; RESP 14; O2SAT 93
--- NOTE | 2020-11-29 09:20 | P.PCN_ITS ---
PACU note PACU note: VSS, Good respiratory effort, report to GEOGRAPHY FACULTY MEMBER Post-Anesthesia Exam: awake
--- NOTE | 2020-11-29 09:20 | PM.PACU ---
PACU note PACU note: VSS, Good respiratory effort, report to TREE FRUIT AND NUT FARMING SUPERVISOR Post-Anesthesia Exam: awake
[2020-11-29 09:25] VITALS: BP 114/62; PULSE 73; RESP 16; O2SAT 94
--- NOTE | 2020-11-29 09:28 | PM.OP ---
Operative Report Date of procedure: November 29, 2020 Pre-op Diagnosis: Anorectal pain, hematochezia, history of anal stenosis. Post-op Diagnosis: 1. Anal papilla. 3. Mild anal stenosis. 2. External anal tag. Procedure Done: 1. Flexible sigmoidoscopy. 2. Excision of external anal tag. 3. Anal dilation. Pathology: none sent Surgeon: Andrea Huynh Anesthesia: MAC Estimated blood loss (mL): 1 Complications: None. Condition: stable Disposition: PACU Procedure: The patient was brought to the operating room and was placed in a left lateral decubitus position on his gurney. A monitored anesthetic was induced. Flexible sigmoidoscopy was then carried out to the distal sigmoid colon. The patient was found to have a significant hemorrhoidal tag in a right lateral location on exam. He had some mild anal stenosis on digital rectal exam as well as one significant internal anal papilla. He was also found to have a few diverticula in his sigmoid colon. The decision was made to remove the significant external anal tag. The anal region was prepped with Betadine and was anesthetized using a combination of 1% lidocaine with 1 to 100,000 parts epinephrine and 0.5% bupivacaine. The anal tag was completely excised using cautery. An anal dilation was then carried out. This was actually fairly easily accomplished in the sense that eventually the anal opening could be dilated to approximately 2 finger breaths without much difficulty. An anal packing consisting of some fluffs and a Vaseline coated piece of gauze was then introduced. A sterile fluff dressing was applied and the patient was taken to the recovery room in stable condition postoperatively.
--- NOTE | 2020-11-29 09:29 | W.PM.OPSUD ---
Surgery/Procedure H&P Update DATE OF PROCEDURE: November 29, 2020 DATE H&P PERFORMED: 11/20/20 H&P UPDATE INFORMATION: No changes to prior documentation PREOP DIAGNOSIS: Anorectal pain, hematochezia PLANNED PROCEDURE: Operation Date: 11/29/20 08:00 Proposed Procedures p flexible Sigmoidoscopy [id number] k62.89 k92.1(Not Applicable) - Andrea Huynh MD s Anal dialation(Not Applicable) - Andrea Huynh MD
[2020-11-29 09:30] VITALS: BP 110/61; PULSE 67; RESP 19; TEMP 36.9; O2SAT 97
[2020-11-29 09:37] VITALS: BP 120/65; PULSE 64; RESP 18; O2SAT 96
--- NOTE | 2020-11-29 14:55 | ANE.PACU2 ---
Inpatient post-anesthesia follow up: Airway intact: Yes Vital signs: Temperature 98.5 F Pulse Rate 64 Respiratory Rate 18 Blood Pressure 120/65 Pulse Oximetry 96 Oxygen Delivery Me thod Room Air Oxygen Flow Rate Fraction of Inspir ed Oxygen Hydration adequate: Yes Nausea and vomiting: No Pain level: 1 Mental status: Baseline
== END 2020-11-29 10:10 | disposition home or self-care (01) ==
PROVIDERS: PCP Internal Medicine; Visit Provider Surgery
PROC: 0DJD8ZZ Inspection of Lower Intestinal Tract, Via Natural or Artificial Opening Endoscopic (ICD-10-PCS; CPT 45330; principal; 2020-11-29 08:00)
PROC: 0DJDXZZ Inspection of Lower Intestinal Tract, External Approach (ICD-10-PCS; 2020-11-29 08:00)
DX: K62.89 Other specified diseases of anus and rectum (principal); K92.1 Melena; K62.4 Stenosis of anus and rectum; K64.4 Residual hemorrhoidal skin tags
CPT/HCPCS: 12345; 45330; 88304; 93005; 96374; J0690; J2704; J3010; J3490; J7030; S0030

== ENCOUNTER 2021-10-16 15:42 | Emergency (ER) | payer MEDICARE, OTHER, SELFPAY ==
[2021-10-16 15:55] VITALS: BP 105/64; PULSE 80; RESP 18; TEMP 36.9; O2SAT 98; BMI 37.6
--- NOTE | 2021-10-16 17:25 | W.ED.EXTPRO ---
HPI - Extremity Problem General: Chief complaint: Extremity Injury, Lower Stated complaint: Leg pain, pos blood clot Time Seen by Provider: 10/16/21 17:09 Source: patient and family Mode of arrival: wheelchair Limitations: no limitations History of Present Illness: Patient is a 75-year-old male who presents to ED today along with family for concerns of right leg swelling and pain. Patient states approximately 2 weeks ago he injured his right knee stating he was kneeling on the ground playing with kids. He was seen by his PCP regarding the knee pain and was told to ice and elevate the extremity. Patient states over the past several days he has noticed progressive swelling to the knee and has also noticed swelling distally and proximally. He was seen by PCP today and referred to ED for DVT rule out. Family states he is not able to bear weight on the right lower leg secondary to pain. They have not noticed any heat or swelling. Patient has chronic pain to the knee that he treats with Percocet. They have referral placed for an orthopedic provider in [place], [place] and states this appointment is scheduled for early November. They also have order for MRI already placed. MD Complaint: extremity pain and extremity swelling Onset (ago): day(s) Pain Consistency: constant Location: right and lower extremity Radiation: none Relieving factors: nothing Exacerbating factors: weight bearing and walking Associated symptoms: Reports no associated symptoms; Deny chest pain, fever(s) or rash Review of Systems Const: Denies: fever(s), chills, body aches, fatigue or malaise Card: Denies: chest pain Resp: Denies: dyspnea GI: Denies: abdominal pain Musc: Reports: extremity pain, extremity swelling, joint pain and joint swelling; Denies: neck pain, back pain, joint redness, joint warmth, muscle cramps or decrease in muscle mass Skin/Breast: Denies: rash Neuro: Denies: headache(s), numbness in extremities, weakness in extremities or sensory changes PFS ED PFSH: Medical History 3-vessel CAD Abnormal myocardial perfusion study Acute coronary syndrome Atherosclerosis of coronary artery of [place] heart Cardiomyopathy Cholecystitis Dyslipidemia Leg swelling Morbid obesity due to excess calories Osteoarthritis Recent myocardial infarction Rectal bleed Surgical History History of arthroscopy of both shoulders Hx of arthroscopic knee surgery Hx of cholecystectomy Hx of heart surgery Family History Father CAD (coronary artery disease) Other Hyperlipidemia Hypertension Denies family history of Diabetes Clotting disorder Dementia Chronic kidney disease (CKD) Suicide Anesthesia complication Bleeding disorder Lung disease Cancer Stroke Social History Smoking and tobacco status: former smoker Alcohol intake: never Physical Exam Const: COMMON NORMALS: no acute distress, patient oriented x3 and alert GENERAL APPEARANCE: cooperative NUTRITIONAL APPEARANCE: obese ORIENTATION/CONSCIOUSNESS: Yes awake, Yes oriented to person, Yes oriented to place and Yes oriented to time Resp: COMMON NORMALS: normal respiratory effort and clear to auscultation bilaterally AUSCULTATION: clear to auscultation bilaterally Cardio: COMMON NORMALS: regular rate and regular rhythm RATE: regular rate RHYTHM: regular rhythm Extremity: COMMON NORMALS: capillary refill normal GENERAL: Yes normal exam except as noted RIGHT LOWER EXTREMITY: Yes upper leg, Yes knee joint, Yes foot & digits and Yes foot & digits OTHER: patient has diffuse significant edema to R LE; he has normal DP/PT pulses and cap refill; sensory intact; no redness/warmth/streaking/signs of infection; no obvious Mack's cyst; no lymphadenopathy Neuro: COMMON NORMALS: patient oriented x3 SENSORIUM/ORIENTATION: Yes alert, Yes oriented to person, Yes oriented to place and Yes oriented to time Course Vital Signs: Vital signs: Vital Signs Temperature 98.4 F 10/16/21 15:55 Pulse Rate 80 10/16/21 15:55 Respiratory Rate 18 10/16/21 15:55 Blood Pressure 105/64 10/16/21 15:55 Pulse Oximetry 98 10/16/21 15:55 MDM - Extremity (Nontraumatic) Medical Decision Making Pts R LE venous US negative for DVT. Knee XR showing tricompartmental DJD but no acute findings. He is neurovascularly intact. Recommend ice/elevation. He already takes Percocet 7.5/325 TID so recommend he continue this as prescribed. Recommend he contact PCP this week regarding follow up. Lab Data Radiology Impressions Venous Duplex 10/16/21 17:35 IMPRESSION: No evidence of deep vein thrombosis. Knee X-Ray 10/16/21 17:50 IMPRESSION: 1. No acute findings. 2. Moderate tricompartmental DJD of the knee. Discharge Plan Discharge Patient Disposition: Home Clinical Impression: Edema of right lower extremity Condition: Stable Prescriptions: No Action temazepam [Restoril] 15 mg capsule 15 mg PO ONCE 15 Days Qty: 15 0RF aspirin [Adult Low Dose Aspirin] 81 mg tablet,delayed release (DR/EC) 81 mg PO DAILY 0RF potassium 99 mg tablet PO 0RF triamcinolone acetonide [Kenalog] 40 mg/mL suspension 40 mg intra-articular ONCE Qty: 1 0RF bupivacaine (PF) 0.5 % (5 mg/mL) solution 5 mg intra-articular ONCE Qty: 2 0RF lidocaine (PF) 20 mg/mL (2 %) solution 20 mg SUBCUT ONCE Qty: 2 0RF miscellaneous medical supply Misc 1 ea miscellaneous DAILY Qty: 1 0RF Rx Instructions: Please issue one Front Wheeled Walker for ambulation, transfers due to pain and balance deficits. furosemide [Lasix] 20 mg tablet 20 mg PO DAILY Qty: 30 2RF metoprolol succinate 25 mg tablet extended release 24 hr 25 mg PO DAILY Qty: 90 3RF atorvastatin 80 mg tablet 80 mg PO DAILY Qty: 90 3RF lisinopril 10 mg tablet See Rx Instructions .ROUTE .COMPLEX Qty: 90 2RF Dose Instruction: Take 1 tablet by mouth once daily Rx Instructions: Take 1 tablet by mouth once daily magnesium oxide 400 mg magnesium Tablet 400 mg PO DAILY 0RF Vitamin D3 1 tab PO DAILY 0RF pantoprazole 40 mg Tablet,Delayed Release (Dr/Ec) 40 mg PO DAILY Qty: 0 0RF hydrocodone-acetaminophen 5-325 mg tablet 1 - 2 tab PO Q5H PRN (Reason: pain) Qty: 30 0RF Discharge Orders: Discharge ED (Routine); Ordered 10/16/21 Ordered By: Rea Aguirre Referrals: Carlos Mendez [Primary Care Provider] - Coding Level of Care Code ED Congressional Assistant for Chg Fwd Exam Expanded Problem Focused
--- NOTE | 2021-10-16 17:35 | USR_ITS ---
PROCEDURE INFORMATION: Exam: US Duplex Right Lower Extremity Veins, Limited Exam date and time: 10/16/2021 5:35 PM Age: 75 years old Clinical indication: Pain; Swelling (edema) of limb; Lower extremity, right; Leg, lower; Additional info: Swelling/pain TECHNIQUE: Imaging protocol: Real-time Duplex ultrasound of the Right Lower Extremity with 2-D nascimento scale, color Doppler flow and spectral waveform analysis with image documentation. Limited exam was focused on the right lower extremity veins. COMPARISON: CR XR knee RT 3V* [id number] 10/16/2021 6:06 PM FINDINGS: Right deep veins: Unremarkable. The common femoral, femoral, proximal profunda femoral and popliteal veins are patent without thrombus. Normal Doppler waveforms. Normal compressibility and/or augmentation response. Right superficial veins: Unremarkable. Saphenofemoral junction is patent without thrombus. Soft tissues: Unremarkable. US/[place] [id number] IMPRESSION: No evidence of deep vein thrombosis.
--- NOTE | 2021-10-16 17:50 | XRR_ITS ---
PROCEDURE INFORMATION: Exam: XR Right Knee Exam date and time: 10/16/2021 5:50 PM Age: 75 years old Clinical indication: Pain; Right; Prior surgery; Surgery date: 6+ months; Surgery type: RT knee; Additional info: Knee pain/injury TECHNIQUE: Imaging protocol: XR Right knee. Views: 3 views. COMPARISON: [place] [facility] [place] AP Standing 07/26/2019 10:17 AM FINDINGS: Bones/joints: Osseous structures are intact. Negative for fracture. Moderate tricompartmental joint space narrowing and marginal osteophyte formation. Soft tissues: Normal. XR/XR knee RT 3V* [id number] IMPRESSION: 1. No acute findings. 2. Moderate tricompartmental DJD of the knee.
== END 2021-10-16 19:49 | disposition home or self-care (01) ==
PROVIDERS: Emergency Provider Physician Assistant; PCP Clinical Nurse Specialist Adult Health
DX: R60.0 Localized edema (principal); Z79.82 Long term (current) use of aspirin; I25.10 Atherosclerotic heart disease of native coronary artery without angina pectoris; E78.5 Hyperlipidemia, unspecified; I25.2 Old myocardial infarction; Z87.891 Personal history of nicotine dependence
CPT/HCPCS: 73562; 93971; 99282

== ENCOUNTER 2022-03-25 10:23 | Outpatient (CLI) | payer MEDICARE, OTHER, SELFPAY ==
[2022-03-25 11:26] LABS: Chol HDL Ratio 2.54 mg/dL (1.0-5.00); Cholesterol 89 mg/dL (0-200); HDL Cholesterol 35 mg/dL (60-100); LDL Cholesterol Calculated 33 mg/dL (50-129); LDL HDL Ratio 0.94 RATIO (0.00-3.22); Triglycerides 106 mg/dL (0-150)
== END 2022-03-25 10:24 | disposition home or self-care (01) ==
LOC: LAB 10:28
PROVIDERS: PCP Clinical Nurse Specialist Adult Health; Visit Provider Internal Medicine Cardiovascular Disease
DX: E78.5 Hyperlipidemia, unspecified (principal)
CPT/HCPCS: 36415; 80061

== ENCOUNTER → 2022-09-24 14:06 | Outpatient (BNVA) | payer MEDICARE, OTHER, SELFPAY | PROVIDERS: PCP Clinical Nurse Specialist Adult Health; Visit Provider Internal Medicine Cardiovascular Disease | DX: E78.5 Hyperlipidemia, unspecified (principal); I25.10 Atherosclerotic heart disease of native coronary artery without angina pectoris; I10 Essential (primary) hypertension; M96.89 Other intraoperative and postprocedural complications and disorders of the musculoskeletal system; Z87.891 Personal history of nicotine dependence | CPT/HCPCS: 36415; 80061; 80076; 99214 ==

== ENCOUNTER → 2023-01-20 13:39 | Outpatient (BNVA) | payer MEDICARE, OTHER, SELFPAY | PROVIDERS: PCP Clinical Nurse Specialist Adult Health; Visit Provider Clinical Nurse Specialist Adult Health | DX: E78.5 Hyperlipidemia, unspecified (principal) | CPT/HCPCS: 80053 ==

== ENCOUNTER → 2023-03-11 16:35 | Outpatient (BNVA) | payer MEDICARE, OTHER, SELFPAY | PROVIDERS: PCP Clinical Nurse Specialist Adult Health; Visit Provider Internal Medicine Cardiovascular Disease | DX: R06.02 Shortness of breath (principal); I10 Essential (primary) hypertension; I25.5 Ischemic cardiomyopathy; I25.10 Atherosclerotic heart disease of native coronary artery without angina pectoris; E78.5 Hyperlipidemia, unspecified; R60.0 Localized edema | CPT/HCPCS: 36415; 80048; 83880; 99214 ==

== ENCOUNTER → 2023-09-23 12:19 | Outpatient (BNVA) | payer MEDICARE, OTHER, SELFPAY | PROVIDERS: PCP Clinical Nurse Specialist Adult Health; Visit Provider Internal Medicine Cardiovascular Disease | DX: E78.5 Hyperlipidemia, unspecified (principal) | CPT/HCPCS: 36415; 80061; 80076; 99214 ==

== ENCOUNTER → 2024-03-22 11:38 | Outpatient (BNVA) | payer MEDICARE, OTHER, SELFPAY | PROVIDERS: PCP Clinical Nurse Specialist Adult Health; Visit Provider Internal Medicine Cardiovascular Disease | DX: I25.10 Atherosclerotic heart disease of native coronary artery without angina pectoris (principal); I25.5 Ischemic cardiomyopathy; I10 Essential (primary) hypertension; E78.5 Hyperlipidemia, unspecified; Z87.891 Personal history of nicotine dependence | CPT/HCPCS: 99214 ==

== ENCOUNTER → 2024-10-07 08:27 | Outpatient (BNVA) | payer MEDICARE, OTHER, SELFPAY | PROVIDERS: PCP Family Medicine; Visit Provider Nurse Practitioner Family | DX: I25.10 Atherosclerotic heart disease of native coronary artery without angina pectoris (principal); I25.5 Ischemic cardiomyopathy; I10 Essential (primary) hypertension; E78.5 Hyperlipidemia, unspecified | CPT/HCPCS: 99213 ==

== ENCOUNTER → 2025-02-16 12:50 | Outpatient (BNVA) | payer MEDICARE, OTHER, SELFPAY | PROVIDERS: PCP Family Medicine; Visit Provider Family Medicine | DX: I25.10 Atherosclerotic heart disease of native coronary artery without angina pectoris (principal); I25.5 Ischemic cardiomyopathy; M25.569 Pain in unspecified knee; N40.0 Benign prostatic hyperplasia without lower urinary tract symptoms | CPT/HCPCS: 80053; 80061; 84153; 85025 ==